=== PATIENT | female | born 1945 | race Caucasian/White ===

== ENCOUNTER 2019-04-21 14:55 | Outpatient (CLI) | payer MEDICARE, OTHER, SELFPAY ==
--- NOTE | 2019-04-21 | XR_ITS ---
WS: [id number] HIP WITH PELVIS LEFT TECHNIQUE: 3 views of the left hip with pelvis CLINICAL INFORMATION: LEFT HIP PAIN COMPARISON: None. FINDINGS: Mild degenerative arthritis left hip with joint space narrowing. Osteopenia. Pelvic phleboliths. No a cute fractures. XR/XR hip LT 2-3V wo/w pel* [id number] IMPRESSION: No acute fractures
== END 2019-04-21 14:56 | disposition home or self-care (01) ==
LOC: RADOUTREAD 04-22 11:37
PROVIDERS: Family Provider Internal Medicine; PCP Internal Medicine; Visit Provider Nurse Practitioner Family
DX: M16.12 Unilateral primary osteoarthritis, left hip (principal); M25.552 Pain in left hip

== ENCOUNTER 2019-06-15 08:37 | Outpatient (CLI) | payer MEDICARE, OTHER, SELFPAY ==
--- NOTE | 2019-06-15 08:53 | XR_ITS ---
WS: [id number] PROCEDURE: XR chest 2V* [id number] CLINICAL INFORMATION: COUGH COMPARISON: September 17, 2018 FINDINGS: Heart: Normal cardiac silhouette. Tortuous thoracic aorta. Aortic calcification. Lungs: Lungs are clear. No consolidation or pleural fluid. Chronic emphysematous changes. Chronic roverto vation left hemidiaphragm unchanged. Bones: Normal visualized bony structures. XR/XR chest 2V* [id number] IMPRESSION: 1. Chronic elevation left hemidiaphragm unchanged since 2018. 2. No significant interval changes.
== END 2019-06-15 08:38 | disposition home or self-care (01) ==
LOC: RADWPI 08:47
PROVIDERS: Family Provider Internal Medicine; PCP Internal Medicine; Visit Provider Specialist
DX: R05 Cough (principal)
CPT/HCPCS: 71046

== ENCOUNTER → 2019-07-16 08:14 | Outpatient (BNVA) | payer MEDICARE, OTHER, SELFPAY | PROVIDERS: Family Provider Internal Medicine; PCP Internal Medicine; Visit Provider Nurse Practitioner Family | DX: N30.80 Other cystitis without hematuria (principal) | CPT/HCPCS: 81001 ==

== ENCOUNTER → 2019-10-14 08:54 | Outpatient (BNVA) | payer MEDICARE, OTHER, SELFPAY | PROVIDERS: Family Provider Internal Medicine; PCP Internal Medicine; Visit Provider Dermatology | DX: L40.8 Other psoriasis (principal) | CPT/HCPCS: 99203 ==

== ENCOUNTER 2020-06-10 20:01 | Observation (INO) | payer MEDICARE, OTHER, SELFPAY ==
[2020-06-10 20:08] VITALS: BP 181/94; PULSE 80; RESP 16; TEMP 36.6; O2SAT 97; BMI 26.6
--- NOTE | 2020-06-10 20:29 | CTR_ITS ---
PROCEDURE INFORMATION: Exam: CT Head Without Contrast Exam date and time: 06/10/2020 8:31 PM Age: 74 years old Clinical indication: Pain; Headache not specified; Patient HX: Headache with dizziness and nausea; Additional info: Dizzy TECHNIQUE: Imaging protocol: Computed tomography of the head without contrast. Radiation optimization: All CT scans at this facility use at least one of these dose optimization techniques: automated exposure control; mA and/or kV adjustment per patient size (includes targeted exams where dose is matched to clinical indication); or iterative reconstruction. COMPARISON: No relevant prior studies available. RADIATION DOSE METRICS: Total DLP (mGy-cm): 871.25 FINDINGS: There is mild generalized atrophy. There are mild areas of decreased attenuation in the periventricular white matter which is nonspecific but likely relates to small vessel ischemic change. 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 There is no evidence for acute infarct. There is no evidence for mass. There is no hemorrhage. There are no extra-axial fluid collections. There is no midline shift. The skull is intact. The visualized paranasal sinuses are well aerated. There is atherosclerotic change of the cavernous carotid arteries. CT/CT head wo con* [id number] IMPRESSION: No evidence for acute infarct, mass or hemorrhage. Radiation Dose CTDIVOL = (mGy): DLP = 871.25 (mGy-cm)
--- NOTE | 2020-06-10 20:29 | XRR_ITS ---
PROCEDURE INFORMATION: Exam: XR Chest Exam date and time: 06/10/2020 8:32 PM Age: 74 years old Clinical indication: Other: Dizzy; Prior surgery; Surgery date: 6+ months TECHNIQUE: Imaging protocol: XR of the chest Views: 1 view. COMPARISON: CR XR chest 2V* [id number] 06/15/2019 9:01 AM FINDINGS: There is elevation of the left hemidiaphragm. There is some atelectasis in the left lung base. The right lung is clear. There is no pleural effusion or pneumothorax. The heart size is stable. The pulmonary vascularity is normal. XR/XR chest 1V portable [id number] IMPRESSION: Some minimal atelectasis in the left lung base.
--- NOTE | 2020-06-10 20:30 | ECG_ITS ---
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
[2020-06-10 20:40] LABS: Basophils # 0.1 10^3/uL (0.0-0.1); Eosinophils # 0.3 10^3/uL (0.0-0.8); Eosinophils % 3.7 %; Hemoglobin 13.4 g/dL (11.5-15.3); Lymphocytes # 2.1 10^3/uL (0.8-4.8); Lymphocytes % 24.9 %; Mean Corpuscular HGB Conc 32.7 g/dL (30.0-36.0); Mean Corpuscular Hemoglobin 28.4 pg (28.0-34.0); Mean Corpuscular Volume 86.9 fL (81-99); Mean Platelet Volume 9.2 fL (7.4-10.4); Monocytes # 1.1 10^3/uL (0.2-0.9); Monocytes % 13.8 %; Neutrophils # 4.66 10^3/uL (1.8-7.7); Neutrophils % 56.4 %; Nucleated Red Blood Cells % 0 %; Platelet Count 497 10^3/cmm (130-400); Red Blood Count 4.72 10^6/uL (4.1-5.3); Red Cell Distribution Width 13.1 % (12.1-15.1); White Blood Count 8.3 10^3/uL (4.0-10.0)
[2020-06-10 20:53] LABS: Partial Thromboplastin Time 32.1 SECONDS (23.9-36.7)
[2020-06-10 20:57] LABS: Alanine Aminotransferase 20 U/L (0-33); Alkaline Phosphatase 184 IU/L (35-105); Anion Gap 14.4 (5-19); Aspartate Amino Transferase 21 U/L (0-32); Blood Urea Nitrogen 14 mg/dL (8-23); C Reactive Protein 4.4 mg/L (0.0-4.9); Calcium 8.9 mg/dL (8.5-10.5); Carbon Dioxide 26 mmol/L (22-29); Chloride 101 mmol/L (98-107); Creatine Phosphokinase 87 U/L (26-192); Globulin 2.6 g/dL (1.3-4.6); Glucose 115 mg/dL (65-115); Osmolality Calculated 287 mOsm/kg (285-295); Potassium 3.4 mmol/L (3.5-5.1); Sodium 138 mmol/L (136-145); Total Bilirubin 0.2 mg/dL (0.15-1.2); Total Protein 6.6 g/dL (6.6-8.7)
[2020-06-10 21:00] LABS: Troponin(5th) Baseline 10 ng/L (0-10)
--- NOTE | 2020-06-10 21:02 | W.ED.DIZZY ---
HPI - Dizziness General: Chief Complaint: Dizziness Stated Complaint: DIZZY SPELLS, HTN Time Seen by Provider: 06/10/20 20:24 History of Present Illness: HPI Narrative: 74-year-old lady with no prior history of headaches presents with headache on and off for 4 days or so. It became worse today with onset of dizziness about an hour prior to arrival. She states she was nauseated because of the dizziness. She describes it as a vertiginous type dizziness with associated nausea she says that she was able to transfer and was not ataxic. She localizes the pain to the back of her head. She has also noticed that her blood pressure has been high, particularly now. MD elicited complaint: dizziness, lightheadedness, near syncope and vertigo Pertinent past history: other ( Heart murmur htn) Onset (ago): minute(s) (60) Timing: gradual onset Severity: severe Description: sense of movement, room spinning , lightheadedness and near-syncope History of similar symptoms: No Exacerbating factors: movement/ambulation, change in body position and position/lying down Relieving factors: remaining still Associated symptoms: Reports headache(s), nausea and vomiting; Denies change in hearing, chest pain, cough, diaphoresis, fevers/chills, syncope or weakness Associated neuro symptoms: Deny confusion, difficulty speaking, dysphagia, diplopia, extremity weakness, facial numbness, facial weakness, numbness in extremities or visual changes Review of Systems Const: Denies: fever(s) or diaphoresis ENMT: Denies: change in hearing Card: Denies: chest pain or syncope Resp: Denies: dyspnea or productive cough GI: Reports: nausea and vomiting; Denies: dysphagia Neuro: Reports: headache(s); Denies: numbness in extremities or confusion PFS ED PFSH: Medical History Aortic valve sclerosis History of cystocele REPAIRED WITH RECTOCELE HTN (hypertension) with goal to be determined Hyponatremia Murmur Recurrent UTI Tarsal tunnel syndrome Surgical History History of Achilles tendon repair History of repair of rectocele History of total knee arthroplasty BILATERAL Hx of foot surgery Hx of hysterectomy with oophorectomy Family History Mother CAD (coronary artery disease) Father CAD (coronary artery disease) Social History Smoking and tobacco status: former smoker Alcohol intake: never Adopted: No Caregiver/support person: No Lives independently: No Household members: spouse Marital status: Current occupational status: retired History of recent travel: No Current gender identity: Female Physical Exam Const: COMMON NORMALS: patient oriented x3 GENERAL APPEARANCE: ill appearing and frail appearing ORIENTATION/CONSCIOUSNESS: Yes oriented to person, Yes oriented to place and Yes oriented to time HENMT: COMMON NORMALS: normocephalic, external ears normal and Normal external nose present HEAD & SCALP: normocephalic FACE & SINUS: normal facial exam NOSE: Normal external nose present and No nasal discharge present EXTERNAL EAR: Yes external ears normal Eye: COMMON NORMALS: Equal, round and reactive pupils present, EOMs intact bilaterally and conjunctivae normal EYELID: eyelids normal CONJUNCTIVA: Yes conjunctivae normal PUPIL: Yes Equal, round and reactive pupils present Neck/C-Spine: COMMON NORMALS: full ROM and no meningeal signs CERVICAL SPINE: Yes normal cervical lordosis and No Cervical spine tenderness Chest: COMMONS NORMALS: normal inspection of the chest CHEST: No tenderness Resp: COMMON NORMALS: clear to auscultation bilaterally EFFORT & INSPECTION: No tachypneic, No respiratory distress, No retractions, No uses accessory muscles and No tracheal deviation AUSCULTATION: clear to auscultation bilaterally, no rhonchi, no wheezes and lung sounds not diminished Cardio: COMMON NORMALS: regular rate and regular rhythm RATE: regular rate RHYTHM: regular rhythm HEART SOUNDS: Murmur heart sound present PERIPHERAL PULSES: radial pulses present GI: INSPECTION: No abdominal distension AUSCULTATION: No Hyperactive bowel sounds present and No Hypoactive bowel sounds present PALPATION: No Guarding due to palpation present (GI) and No Rigid due to palpation PERCUSSION: no dullness to percussion and no tympanic to percussion Neuro: COMMON NORMALS: patient oriented x3, CN's II-XII intact bilaterally and moves all extremities SENSORIUM/ORIENTATION: Yes oriented to person, Yes oriented to place and Yes oriented to time MENINGEAL SIGNS: Yes no meningeal signs COORDINATION/BALANCE: [id number] test normal and [id number]-xz-[id number] test normal SPEECH: speech normal GAIT: Yes Unable to assess gait SENSORY EXAM: Yes extremities (Normal) MOTOR EXAM: 5/5 motor strength present throughout and Pronator motor function not present COORDINATION: qiajqt-mi-upvo test normal and [id number]-lv-[id number] test normal Psych: COMMON NORMALS: mental status grossly normal Skin: COMMON NORMALS: no rashes or lesions noted GENERAL SKIN EXAM: no rashes or lesions noted Course Vital Signs: Vital signs: Vital Signs Temperature 97.7 F 06/11/20 04:00 Pulse Rate 66 06/11/20 04:00 Respiratory Rate 20 H 06/11/20 04:00 Blood Pressure 126/65 06/11/20 04:00 Pulse Oximetry 93 06/11/20 04:00 MDM - Dizziness MDM Narrative: Medical decision making narrative: NIH stroke scale is 0. The patient is not dizzy when not moving or changing position she got dizzy lying flat for CT, and with getting up to use the bedside commode nausea with vomiting both times. Laboratory grossly normal save a potassium of 3.4. Head CT is negative. CTA of the head and neck are performed without evidence of occlusion or dissection. CRP is normal. Blood pressure was quite high. It is improved now 140/90. Her head pressure has improved but not resolved, her nausea has resolved. Her dizziness is nonexistent when lying still. Posterior circulation stroke is in the differential, but these people generally are dizzy despite remaining still, and do not have intense headaches. Hypertensive urgency is in the differential as well migraine with dizziness and labyrinthitis/positional vertigo. Giving IV Depacon to see if head pressure improves. Head pressure improved with Depacon. Patient is still vertiginous with movement. Her pressure is improved. She will be observed for generalized weakness and vertigo. MRI of possible later in the morning. Lab Data: Labs: Lab Results 06/10/20 06/10/20 06/10/20 Range/Units 00:01 20:34 20:34 WBC 8.3 (4.0-10.0) 10^3/ uL RBC 4.72 (4.1-5.3) 10^6/u L Hgb 13.4 (11.5-15.3) g/dL Hct 41.0 (37.0-47.0) % MCV 86.9 (81-99) fL MCH 28.4 (28.0-34.0) pg MCHC 32.7 (30.0-36.0) g/dL RDW 13.1 (12.1-15.1) % Plt Count 497 H (130-400) 10^3/c mm MPV 9.2 (7.4-10.4) fL Neut % (Auto) 56.4 % Lymph % (Auto) 24.9 % [place] % (Auto) 13.8 % Eos % (Auto) 3.7 % Baso % (Auto) 1.0 % Neut # (Auto) 4.66 (1.8-7.7) 10^3/u L Lymph # (Auto) 2.1 (0.8-4.8) 10^3/u L [place] # (Auto) 1.1 H (0.2-0.9) 10^3/u L Eos # (Auto) 0.3 (0.0-0.8) 10^3/u L Baso # (Auto) 0.1 (0.0-0.1) 10^3/u L Nucleated RBC % (a uto) 0 % Nucleated RBCs # 0.0 /100WBC PT 13.50 (12.1-14.9) SECO NDS INR 1.00 (0.8-1.2) APTT 32.1 (23.9-36.7) SECO NDS Sodium (136-145) mmol/L Potassium (3.5-5.1) mmol/L Chloride (98-107) mmol/L Carbon Dioxide (22-29) mmol/L Anion Gap (5-19) BUN (8-23) mg/dL Creatinine (0.5-0.9) mg/dL GFR Calculation Glucose (65-115) mg/dL Calculated Osmolal ity (285-295) mOsm/k g Calcium (8.5-10.5) mg/dL Total Bilirubin (0.15-1.2) mg/dL AST (0-32) U/L ALT (0-33) U/L Alkaline Phosphata se (35-105) IU/L Creatine Kinase (26-192) U/L Troponin T Baselin e (0-10) ng/L Troponin T 120 Min [place] 8.32 (0-10) ng/L Delta Troponin T Not Reportable C-Reactive Protein (0.0-4.9) mg/L Total Protein (6.6-8.7) g/dL Albumin (3.5-5.2) g/dL Globulin (1.3-4.6) g/dL Urine Color (Yellow) Urine Appearance (CLEAR) Urine pH (5-7) Ur Specific Gravit y (1.005-1.030) Urine Protein (Negative) Urine Glucose (UA) (Normal) Urine Ketones (Negative) Urine Blood (Negative) Urine Nitrate (Negative) Urine Bilirubin (Negative) Prot Sulfosalicyli c Acd (Negative) Urine Urobilinogen (Negative) mg/dL Ur Leukocyte Yuli ase (Negative) 06/10/20 06/10/20 06/10/20 Range/Units 20:34 20:34 22:00 WBC (4.0-10.0) 10^3/ uL RBC (4.1-5.3) 10^6/u L Hgb (11.5-15.3) g/dL Hct (37.0-47.0) % MCV (81-99) fL MCH (28.0-34.0) pg MCHC (30.0-36.0) g/dL RDW (12.1-15.1) % Plt Count (130-400) 10^3/c mm MPV (7.4-10.4) fL Neut % (Auto) % Lymph % (Auto) % [place] % (Auto) % Eos % (Auto) % Baso % (Auto) % Neut # (Auto) (1.8-7.7) 10^3/u L Lymph # (Auto) (0.8-4.8) 10^3/u L [place] # (Auto) (0.2-0.9) 10^3/u L Eos # (Auto) (0.0-0.8) 10^3/u L Baso # (Auto) (0.0-0.1) 10^3/u L Nucleated RBC % (a uto) % Nucleated RBCs # /100WBC PT (12.1-14.9) SECO NDS INR (0.8-1.2) APTT (23.9-36.7) SECO NDS Sodium 138 (136-145) mmol/L Potassium 3.4 L (3.5-5.1) mmol/L Chloride 101 (98-107) mmol/L Carbon Dioxide 26 (22-29) mmol/L Anion Gap 14.4 (5-19) BUN 14 (8-23) mg/dL Creatinine 0.8 (0.5-0.9) mg/dL GFR Calculation Not Reportable Glucose 115 (65-115) mg/dL Calculated Osmolal ity 287 (285-295) mOsm/k g Calcium 8.9 (8.5-10.5) mg/dL Total Bilirubin 0.2 (0.15-1.2) mg/dL AST 21 (0-32) U/L ALT 20 (0-33) U/L Alkaline Phosphata se 184 H (35-105) IU/L Creatine Kinase 87 (26-192) U/L Troponin T Baselin e 10 (0-10) ng/L Troponin T 120 Min [place] (0-10) ng/L Delta Troponin T C-Reactive Protein 4.4 (0.0-4.9) mg/L Total Protein 6.6 (6.6-8.7) g/dL Albumin 4.0 (3.5-5.2) g/dL Globulin 2.6 (1.3-4.6) g/dL Urine Color Yellow (Yellow) Urine Appearance Clear (CLEAR) Urine pH 8 H (5-7) Ur Specific Gravit y 1.010 (1.005-1.030) Urine Protein Neg (Negative) Urine Glucose (UA) Norm (Normal) Urine Ketones Negative (Negative) Urine Blood Neg (Negative) Urine Nitrate Negative (Negative) Urine Bilirubin Neg (Negative) Prot Sulfosalicyli c Acd Negative (Negative) Urine Urobilinogen Norm (Negative) mg/dL Ur Leukocyte Yuli ase Negative (Negative) Discharge Plan Discharge Patient Disposition: Placed in Observation Admit Provider: Bryon Mujica Clinical Impression: Hypertensive urgency Headache Qualifiers: Intractability: not intractable Coding Level of Care Code ED Joiner Helper for Chg Fwd Exam Comprehensive
--- NOTE | 2020-06-10 21:05 | CTR_ITS ---
PROCEDURE INFORMATION: Exam: CT Angiography Head With Contrast Exam date and time: 06/10/2020 9:07 PM Age: 74 years old Clinical indication: Pain; Dizziness and giddiness; Patient HX: Occipital headache with dizziness and nausea. TECHNIQUE: Imaging protocol: Computed tomography angiography of the head with intravenous contrast. 3D rendering (Not supervised by radiologist): MIP and/or 3D reconstructed images were created by the technologist. Total images: 782 Radiation optimization: All CT scans at this facility use at least one of these dose optimization techniques: automated exposure control; mA and/or kV adjustment per patient size (includes targeted exams where dose is matched to clinical indication); or iterative reconstruction. Contrast material: 350; Contrast volume: 75 ml; Contrast route: INTRAVENOUS (IV); COMPARISON: CT head wo con* [id number] 06/10/2020 8:58 PM RADIATION DOSE METRICS: Total DLP (mGy-cm): 1941.73 FINDINGS: ANTERIOR CIRCULATION: Right internal carotid artery: Minimal cerebral arteriosclerosis of the internal carotid artery terminus without hemodynamically significant stenosis. Intracranial segment is patent with no significant stenosis. No aneurysm. Right middle cerebral artery: Unremarkable. No occlusion or significant stenosis. No aneurysm. Right anterior cerebral artery: Unremarkable. No occlusion or significant stenosis. No aneurysm. Left internal carotid artery: Minimal cerebral arteriosclerosis of the internal carotid artery terminus without hemodynamically significant stenosis. Intracranial segment is patent with no significant stenosis. No aneurysm. Left middle cerebral artery: Unremarkable. No occlusion or significant stenosis. No aneurysm. Left anterior cerebral artery: Unremarkable. No occlusion or significant stenosis. No aneurysm. POSTERIOR CIRCULATION: Right vertebral artery: Unremarkable. No occlusion or significant stenosis. No aneurysm. Left vertebral artery: Unremarkable. No occlusion or significant stenosis. No aneurysm. Basilar artery: Unremarkable. No occlusion or significant stenosis. No aneurysm. Right posterior cerebral artery: Unremarkable. No occlusion or significant stenosis. No aneurysm. Left posterior cerebral artery: Unremarkable. No occlusion or significant stenosis. No aneurysm. IMPRESSION: 1. No large vessel stenosis or occlusion. 2. Minimal cerebral arteriosclerosis of the bilateral internal carotid artery terminus without hemodynamically significant stenosis. PROCEDURE INFORMATION: Exam: CT Angiography Neck With Contrast Exam date and time: 06/10/2020 9:07 PM Age: 74 years old Clinical indication: Pain; Dizziness and giddiness; Patient HX: Occipital headache with dizziness and nausea. TECHNIQUE: Imaging protocol: Computed tomography angiography of the neck with intravenous contrast. 3D rendering (Not supervised by radiologist): MIP and/or 3D reconstructed images were created by the technologist. Radiation optimization: All CT scans at this facility use at least one of these dose optimization techniques: automated exposure control; mA and/or kV adjustment per patient size (includes targeted exams where dose is matched to clinical indication); or iterative reconstruction. Contrast material: 350; Contrast volume: 75 ml; Contrast route: INTRAVENOUS (IV); COMPARISON: CT head wo con* [id number] 06/10/2020 8:58 PM RADIATION DOSE METRICS: Total DLP (mGy-cm): 1941.73 FINDINGS: Right common carotid artery: No stenosis. No dissection or occlusion. Right internal carotid artery: No stenosis of the extracranial segment. No dissection or occlusion. Right external carotid artery: No occlusion or stenosis of the origin. Right vertebral artery: No stenosis. No dissection or occlusion. Left common carotid artery: No stenosis. No dissection or occlusion. Left internal carotid artery: No stenosis of the extracranial segment. No dissection or occlusion. Left external carotid artery: No occlusion or stenosis of the origin. Left vertebral artery: No stenosis. No dissection or occlusion. Bones/joints: No acute fracture. 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 Facet arthrosis. Soft tissues: Unremarkable for age. No significant soft tissue swelling. CT/CT angio headneck* [id number] IMPRESSION: No stenosis or occlusion. REFERENCES: NASCET CRITERIA. The degree of internal carotid artery stenosis is based on NASCET criteria. Normal is no stenosis. Mild is less than 50% stenosis. Moderate is 50-69% stenosis. Severe is 70% to 99% stenosis. Total occlusion is no detectable patent lumen. Radiation Dose CTDIVOL = (mGy): DLP = 1941.73~1941.73 (mGy-cm)
[2020-06-10] MEDS: ondansetron 2 mg/ML SDV 2 mL 4 MG IVP ×2 (21:07→22:13)
[2020-06-10] MEDS: fentaNYL 50 mcg/mL INJ 2mL IVP (21:07)
[2020-06-10] MEDS: labetalol 5 mg/mL SDV 20mL 10 MG IVP (21:13)
[2020-06-10] MEDS: iohexol 350 mg/mL 100 mL Btl IV (21:27)
[2020-06-10 21:36] VITALS: BP 186/91; PULSE 71; RESP 19; O2SAT 95
[2020-06-10] MEDS: LORazepam 2 mg/mL INJ 1 mL 0.5 MG IVP ×2 (22:13→22:14)
[2020-06-10 22:18] VITALS: BP 159/88; PULSE 65; RESP 18; O2SAT 91
--- NOTE | 2020-06-10 22:30 | ECG_ITS ---
[facility] Test Date: 2020-06-10 Pat Name: Sierra Pearce Department: Room: Gender: Female Clinical Associate: : 1945 Requested By: Patrick Burton Order Number: [id number] Reading MD: YONNY BUCKLEY Measurements Intervals Lottie Rate: 59 P: 34 IN: 204 QRS: 12 QRSD: 88 T: 51 QT: 446 QTc: 444 Interpretive Statements SINUS BRADYCARDIA Compared to ECG 06/10/2020 20:52:06 Sinus rhythm no longer present Electronically Signed On 06-11-2020 18:47:47 [employer] by YONNY BUCKLEY [id number]
[2020-06-10 22:46] LABS: Add Urine Microscopic? NO
[2020-06-10 22:47] LABS: Urine Appearance Clear (CLEAR); Urine Color Yellow (Yellow)
[2020-06-10 22:48] LABS: Bilirubin Urine Neg (Negative); Blood Urine Neg (Negative); Glucose Urine UA Norm (Normal); Ketones Urine Negative (Negative); Leukocyte Esterase Urine Negative (Negative); Nitrate Urine Negative (Negative); Protein Urine Neg (Negative); Sulfosalicylic Acid Urine Negative (Negative); Urobilinogen Urine Norm (Negative); pH Urine 8 (5-7)
[2020-06-10] MEDS: valproic acid inj 500 MG in sodium chloride 0.9% 50 ML 55 MG IV (23:07)
[2020-06-10 23:13] VITALS: BP 135/86; PULSE 61; RESP 16; O2SAT 94
[2020-06-11] VITALS (9 sets, daily range): BP systolic 118–153; BP diastolic 65–87; PULSE 64–84; RESP 16–20; TEMP 36.2–36.8; O2SAT 91–96
--- NOTE | 2020-06-11 00:19 | P.HP_ITS ---
Providers/Chief Complaint Primary Care Provider: Jono Burnham DO Chief Complaint: DIZZY SPELLS, HTN History of Present Illness Sierra Pearce is a 74 year old female with a history of hypertension aortic sclerosis with murmur presented to the emergency department with a complaint of progressive headache of 3 days duration. Patient stated the headache became much worse yesterday evening and therefore presented to the ED. headache is associated with vertigo and nausea. No tinnitus. patient denied any photophobia. Spouse endorsed history of migraine headaches patient was a teenager but over the past 50 years patient have had no management episode. Head CT, CTA head and neck are all unremarkable. EKG is unremarkable. Blood work unremarkable. Per report her systolic blood pressure was 190 on arrival. Patient was given a cocktail of pain medications including Depakote. Patient states her headache and vertigo have improved but she looks drowsy during my examination in the ED. Patient is placed on the observation for further evaluation. Review of Systems Narrative: Except as documented, all other systems reviewed and negative. Medications/Allergies Home Medications Medication Instructions Recorded Confirmed Last Taken Type B-complex with vitamin C 1 cap PO DAILY 07/15/19 06/10/20 Unknown History amlodipine 10 mg tablet 10 mg PO DAILY@0800 07/15/19 06/10/20 06/10/20 History montelukast 10 mg tablet 10 mg PO DAILY@0800 07/15/19 06/10/20 06/10/20 History ketoconazole 2 % shampoo 1 applic TOPICAL DAILY ml 10/14/19 06/10/20 Unknown History mometasone 0.1 % topical solution 1 applic TOPICAL DAILY 10/14/19 06/10/20 Unknown History ciclopirox 0.77 % topical gel 1 applic TOPICAL DAILY #45 gm 10/16/19 06/10/20 Unknown Rx fluocinolone 0.01 % topical body 1 applic TOPICAL DAILY 03/14/20 06/10/20 Unknown History oil Allergies Allergy/AdvReac Type Severity Reaction Status Date / Time hydrocodone Allergy Unknown Unknown Verified 03/22/20 13:07 [From Panlor (hydrocodone-acetamin)] levofloxacin [From Levaquin] AdvReac ADR-Muscle Verified 03/22/20 13:07 Pain PFSH Acute PFSH: Medical History Aortic valve sclerosis History of cystocele REPAIRED WITH RECTOCELE HTN (hypertension) with goal to be determined Hyponatremia Murmur Recurrent UTI Tarsal tunnel syndrome Surgical History History of Achilles tendon repair History of repair of rectocele History of total knee arthroplasty BILATERAL Hx of foot surgery Hx of hysterectomy with oophorectomy Family History Mother CAD (coronary artery disease) Father CAD (coronary artery disease) Social History Smoking and tobacco status: former smoker Alcohol intake: never Adopted: No Caregiver/support person: No Lives independently: No Household members: spouse Marital status: Current occupational status: retired History of recent travel: No Current gender identity: Female Vitals/I&O/Wt Last Vital Signs Temp 97.8 F 06/10/20 20:08 Pulse 61 06/10/20 23:13 Resp 16 06/10/20 23:13 BP 135/86 06/10/20 23:13 Pulse Ox 94 06/10/20 23:13 Weight last 48 hrs Weight 72.575 kg Physical Exam Const: COMMON NORMALS: no acute distress, patient oriented x3 and well nourished HENMT: COMMON NORMALS: atraumatic, moist oral mucous membranes and oropharynx normal Eye: COMMON NORMALS: Equal, round and reactive pupils present, EOMs intact bilaterally and conjunctivae normal Neck/C-Spine: COMMON NORMALS: full ROM, no lymphadenopathy, no JVD and No carotid bruits Lymph: LYMPHATIC: no lymphadenopathy noted Chest: COMMONS NORMALS: normal inspection of the chest CHEST: Yes Symmetrical chest wall rise Resp: COMMON NORMALS: normal respiratory effort, No retractions, No use of accessory muscles and clear to auscultation bilaterally Cardio: COMMON NORMALS: no JVD, regular rate, regular rhythm, S1 normal heart sound present and S2 normal heart sound present HEART SOUNDS: Murmur heart sound present systolic GI: COMMON NORMALS: Normal to inspection, nondistended, normoactive bowel sounds present, Soft to palpation, non-tender, No hepatosplenomegaly present and no bruits : COMMON NORMALS: Yes no CVA tenderness Back/Pelvis: COMMON NORMALS: no thoracic nor lumbar tenderness and thoraco-lumbar ROM normal Extremity: COMMON NORMALS: normal to inspection, capillary refill normal, no clubbing, cyanosis or edema, no calf tenderness and no pedal edema Neuro: COMMON NORMALS: patient oriented x3, CN's II-XII intact bilaterally, no focal motor deficits and no sensory deficits noted Psych: COMMON NORMALS: mental status grossly normal, Normal thought process present, cooperative and speech normal Skin: COMMON NORMALS: no rashes or lesions noted and no jaundice Data : 06/10/20 20:34 06/10/20 20:34 A&P Assessment and plan (1) Headache: Status: Acute (2) Hypertensive urgency: Status: Acute (3) Aortic valve sclerosis: Status: Acute Additional A&P Information Placed under observation. Supportive measures with IV morphine as needed for pain, antiemetics as needed. Hydrate with normal saline Obtain MRI of the brain to rule out acute CVA PT evaluation Continue home antihypertensives-amlodipine. Hydralazine as needed for BP spikes. Attestations Medical Necessity Statement*: Patient presenting with headache associated with vertigo. She need to be hospitalized for further evaluation to rule out acute CVA. She is expected to spend less than 2 midnights. Coding Level of Care Code Acute Hardwood Floor Refinisher for g Fwd Exam Comprehensive Diagnoses Headache R51.9 Hypertensive urgency I16.0 Aortic valve sclerosis I35.8
[2020-06-11 01:05] LABS: Troponin 5 2HR 8.32 ng/L (0-10)
[2020-06-11] MEDS: sodium chloride 0.9% 1,000 ML 75 ML IV (01:17)
[2020-06-11 07:06] LABS: Troponin 5 6HR 9.04 ng/L (0-10)
[2020-06-11] MEDS: montelukast sodium 10 mg Tablet PO (08:46)
[2020-06-11] MEDS: amlodipine 10 mg Tablet PO (08:46)
[2020-06-11] MEDS: ondansetron 2 mg/ML SDV 2 mL 4 MG IVP (09:03)
--- NOTE | 2020-06-11 09:04 | PC.NURSE ---
Patient ambulating with PT
--- NOTE | 2020-06-11 09:56 | PC.NURSE ---
Rounded on patient to give her the 325mg of tylenol that she had requested, but patient is currently sleeping in room. I chose to not awaken the patient at this time. Will continue to monitor.
[2020-06-11 10:15] LABS: Troponin 5 6HR Delta -0.96 ng/L (0-12)
[2020-06-11] MEDS: acetaminophen 325 mg Tablet PO (11:24)
--- NOTE | 2020-06-11 12:03 | MRR_ITS ---
PROCEDURE INFORMATION: Exam: MR Head Without Contrast Exam date and time: 06/11/2020 1:16 PM Age: 74 years old Clinical indication: Pain; Dizziness; Headache not specified; Additional info: Severe headache, possible stroke, nausea and vertigo TECHNIQUE: Imaging protocol: MR of the head without contrast. COMPARISON: CT head wo con* [id number] 06/10/2020 8:58 PM FINDINGS: Brain: There are multiple foci of high T2 and FLAIR signal in the periventricular and subcortical white matter of the bilateral cerebral hemispheres, which at this age likely represent microvascular ischemic changes. There is diffuse cerebral atrophy present, consistent with this patient's age. Diffusion-weighted images show no evidence for acute ischemic infarction. Cerebral ventricles: Normal. No ventriculomegaly. Bones/joints: Unremarkable. Paranasal sinuses: Normal as visualized. No acute sinusitis. Mastoid air cells: Normal as visualized. No mastoid effusion. Orbital cavity: Unremarkable. Soft tissues: Unremarkable. MR/MR head wo con* [id number] IMPRESSION: There are senescent changes in the brain as described above. No evidence for acute ischemic infarction.
[2020-06-11] MEDS: ALPRAZolam 0.25 mg Tablet PO (13:07)
--- NOTE | 2020-06-11 13:07 | PC.NURSE ---
Patient was transported to [facility] by EMS for MRI
--- NOTE | 2020-06-11 14:21 | PC.NURSE ---
Patient is resting in bed; at bedside
--- NOTE | 2020-06-11 14:51 | P.PN_ITS ---
Subjective Subjective: Interval history: Continues to have headache. It has migrated somewhat, getting better at the base of her skull/top of the neck, and migrating to bilateral parietal regions. It is constant. She has no photophobia. No neck discomfort or stiffness. Has had no fever or chills. No nausea vomiting or diarrhea. No rash. denies any confusion, any speech deficits. She has a remote history of migraines, but this did not feel like her migraine in the past, and she has not had them for a long time. She does not take NSAIDs or other similar medications chronically. Blood pressures have been on the higher side at home recently per with episodic hypertension. Pain overall is somewhat better, from 8/10 currently down to about 5/10, but persists. She is wanting to try some broth and may be some other clears. Vitals/I&O/Wt Last Vital Signs Temp 97.8 F 06/11/20 11:49 Pulse 67 06/11/20 11:49 Resp 18 06/11/20 11:49 BP 153/81 06/11/20 11:49 Pulse Ox 92 06/11/20 11:49 06/10/20 06/11/20 06/11/20 22:59 06:59 14:59 Intake Total 55 / 55 30 / 30 Balance 55 / 55 30 / 30 Weight last 48 hrs Weight 72.575 kg Physical Exam Const: COMMON NORMALS: no acute distress, patient oriented x3 and alert GENERAL APPEARANCE: cooperative ORIENTATION/CONSCIOUSNESS: Yes awake OTHER: Hent over forehead, bothered by headache. HENMT: COMMON NORMALS: oropharynx normal Neck/C-Spine: COMMON NORMALS: no JVD Resp: COMMON NORMALS: normal respiratory effort and clear to auscultation bilaterally AUSCULTATION: clear to auscultation bilaterally Cardio: COMMON NORMALS: no JVD, regular rhythm, S1 normal heart sound present, S2 normal heart sound present and No murmurs present (Cardio) RHYTHM: regular rhythm HEART SOUNDS: S1 normal heart sound present and S2 normal heart sound present GI: COMMON NORMALS: Normal to inspection, nondistended, normoactive bowel sounds present, Soft to palpation and non-tender PALPATION: Yes Soft to palpation Extremity: COMMON NORMALS: no joint enlargement and no pedal edema Neuro: COMMON NORMALS: patient oriented x3, moves all extremities and no focal motor deficits SENSORIUM/ORIENTATION: Yes alert MENINGEAL SIGNS: No nuccal rigidity COORDINATION/BALANCE: [id number] test normal SPEECH: speech normal SENSORY EXAM: Yes Normal double simultaneous stimulation for s ensation; No sensory level loss detected MOTOR EXAM: 5/5 motor strength present throughout, Pronator motor function not present and Normal motor muscle tone present throughout COORDINATION: [id number] test normal OTHER: Tracking well. No nystagmus. Denies vertigo. Visual leahy full to confrontation. Skin: COMMON NORMALS: no rashes or lesions noted GENERAL SKIN EXAM: no rashes or lesions noted Data : 06/10/20 20:34 06/10/20 20:34 A&P Assessment and plan (1) Headache: Severe persistent headache which worsened over the last 3 days, severe yesterday, 10. Currently down to about 5/10, migrated from base of the skull to bilateral parietal regions. Does not appear to have focal neurologic a bnormality. Is afebrile. No photophobia or neck stiffness. CT head unremarkable. No signs of hydrocephalus. No signs of bleeding. CT angiogram head and neck appears to be unremarkable. This does not feel like her migraine which she had years ago, and has not had recurrence. The headache has been rather distressing to her. Currently overall perhaps slightly better. We discussed additional diagnostic possibilities. MRI had been ordered and performed for her. We discussed also consideration of assessment by LP to rule out infectious causes of possible meningitis as although does not appear to have other meningeal signs apart from headache, infection cannot be 100% ruled out at this time. Overall bacterial infection appears unlikely or much less likely with lack of fever, other septic features. She is not on any antibiotics. Viral meningitis possible. We discussed this in detail with her and her . We discussed consideration of obtaining LP currently, or waiting somewhat given she is improving, and overall does not have signs of sepsis. They are okay with giving her some more time to see if she will improve, and in the meantime follow-up on results of the MRI. Continue observation in the hospital. We also discussed possibility of hypertensive urgency, given her blood pressures recently have not been well controlled. Discussed with her and . MRI brain has just come back. Does not appear to show signs of PRES, although hypertension is still possible culprit. No temporal lobe enhancement to suggest HSV encephalitis on MRI. 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 Will assess CRP, ESR. CT angiogram does not appear to suggest vasculitis. If recurrent hypotension episodes, headaches, episodic in nature, consider assessment for pheochromocytoma. No vision changes, jaw claudication, etc. to suggest temporal arteritis. She has seasonal allergies, chronic cough with postnasal drip, although CT does not appear to suggest sinusitis. Status: Acute Qualifiers: Intractability: not intractable (2) Hypertensive urgency: Continue amlodipine., Hydralazine as needed. We will add lisinopril. DC IV fluid. Status: Acute (3) Aortic valve sclerosis: Systolic murmur. For this says she is followed by parole or probation officer. Status: Acute (4) Hypokalemia: Mild hypokalemia, 3.4. Replaced. Starting lisinopril as above. Status: Acute Attestations Medical Necessity Statement*: Continue observation due to unexplained severe, worsening headache over the last 3 days possible symptomatic hypertension, hypertensive urgency, optimization of blood pressure control, additional monitoring and work-up as needed to exclude more dangerous causes of the severe headache. Coding Level of Care Code Acute Product Support Sales Representative for Chg Fwd Diagnoses Headache R51.9 Intractability: not intractable Hypertensive urgency I16.0 Aortic valve sclerosis I35.8 Hypokalemia E87.6
[2020-06-11] MEDS: potassium chloride oral liq 20 mEq/15 mL UDC PO (15:17)
[2020-06-11] MEDS: lisinopril 5 mg Tablet PO (16:26)
--- NOTE | 2020-06-11 18:21 | PC.NURSE ---
SHIFT SUMMARY PATIENT HAS BEEN VERY CALM AND PLEASANT TODAY. PATIENT DOES NOT LIKE TAKING MORE MEDICATIONS THAN ABSOLUTELY NECESSARY (HAS ONLY TAKEN 325MG X1 OF TYLENOL TODAY FOR PAIN). PATIENT HAS STARTING FEELING BETTER THIS EVENING. PATIENT IS HOPEFUL SHE CAN GO HOME TOMORROW.
[2020-06-11 20:10] LABS: Erythrocyte Sedimentation Rate 6 mm/hr (0-15)
[2020-06-12 04:00] VITALS: BP 106/62; PULSE 66; RESP 16; TEMP 36.6; O2SAT 92
[2020-06-12] MEDS: enoxaparin 40 mg/0.4 mL Syringe SUBCUT (04:04)
[2020-06-12 06:25] LABS: Basophils # 0.1 10^3/uL (0.0-0.1); Basophils % 0.6 %; Eosinophils # 0.2 10^3/uL (0.0-0.8); Eosinophils % 2.2 %; Hemoglobin 12.7 g/dL (11.5-15.3); Lymphocytes # 1.9 10^3/uL (0.8-4.8); Lymphocytes % 24.9 %; Mean Corpuscular HGB Conc 31.8 g/dL (30.0-36.0); Mean Corpuscular Hemoglobin 28.3 pg (28.0-34.0); Mean Corpuscular Volume 89.1 fL (81-99); Mean Platelet Volume 9.6 fL (7.4-10.4); Monocytes # 0.8 10^3/uL (0.2-0.9); Monocytes % 10.6 %; Neutrophils # 4.73 10^3/uL (1.8-7.7); Neutrophils % 61.3 %; Nucleated Red Blood Cells % 0 %; Platelet Count 463 10^3/cmm (130-400); Red Blood Count 4.49 10^6/uL (4.1-5.3); Red Cell Distribution Width 13.1 % (12.1-15.1); White Blood Count 7.7 10^3/uL (4.0-10.0)
[2020-06-12 06:49] LABS: Alanine Aminotransferase 14 U/L (0-33); Albumin Level 3.3 g/dL (3.5-5.2); Alkaline Phosphatase 128 IU/L (35-105); Anion Gap 10.5 (5-19); Aspartate Amino Transferase 15 U/L (0-32); Blood Urea Nitrogen 8 mg/dL (8-23); Calcium 8.4 mg/dL (8.5-10.5); Carbon Dioxide 27 mmol/L (22-29); Chloride 107 mmol/L (98-107); Globulin 2.4 g/dL (1.3-4.6); Glucose 84 mg/dL (65-115); Magnesium 2.1 mg/dL (1.7-2.3); Osmolality Calculated 290 mOsm/kg (285-295); Phosphorus 3.5 mg/dL (2.5-4.5); Potassium 3.5 mmol/L (3.5-5.1); Sodium 141 mmol/L (136-145); Total Bilirubin 0.3 mg/dL (0.15-1.2); Total Protein 5.7 g/dL (6.6-8.7)
[2020-06-12 08:00] VITALS: BP 137/73; PULSE 66; RESP 18; TEMP 36.6; O2SAT 95
[2020-06-12 08:11] VITALS: BP 106/62; PULSE 66; RESP 16; TEMP 36.6
[2020-06-12 08:15] VITALS: PULSE 63; O2SAT 94
[2020-06-12] MEDS: montelukast sodium 10 mg Tablet PO (08:18)
[2020-06-12] MEDS: amlodipine 10 mg Tablet PO (08:18)
[2020-06-12 10:50] LABS: Gamma Glutamyl Transferase 15 U/L (5-36)
--- NOTE | 2020-06-12 11:24 | P.DS_ITS ---
Discharge Providers Date of Admission: 06/11/20 00:05 Date of Discharge: June 12, 2020 Attending Provider at Admission: Bryon Mujica Attending Provider at Discharge: Boo Gage Primary Care Provider: Jono Burnham DO Diagnoses at Discharge Discharge Diagnosis (1) Headache: Status: Acute Qualifiers: Intractability: not intractable (2) Hypertensive urgency: Status: Acute Permanent problem details: Severe symptomatic hypertension (3) Aortic valve sclerosis: Status: Acute (4) Hypokalemia: Status: Acute Reason for Visit Reason for Visit: DIZZY SPELLS, HTN Hospital Course Hospital Course Pleasant 74-year-old lady with history of HTN, aortic valve sclerosis, following with cardiology, presented with progressive headache over about 3 days, getting worse, reported lightheadedness/dizziness, but denied vertigo. She had no photophobia. She had no fever, chills. Headache was initially at the base of her head in the back. Subsequently migrated to bilateral parietal lobes. She had a distant history of migraine headaches, but they were not usually this bad. He has not had a headache in a long time. Prescription with her spouse she was noted to have blood pressures intermittently at that were high, and overall hypertension control has been worse recently. She takes amlodipine 10 mg daily. On presentation noted in hypertensive urgency, BP at least as high as 186/91, required hydralazine IV. Subsequently blood pressures gradually improved, but better, but still variable and occasionally up into the 150s systolic. Lisinopril was added. Due to severe headache was initially assessed by CT head which was unremarkable. Chest x-ray with minimal atelectasis in the left lung base, no sign of pulmonary edema or pneumonia. CT head and neck showed no large vessel stenosis. Minimal cerebral arteriosclerosis of bilateral internal carotid artery terminus without hemodynamically significant stenosis. With persistence of headache, was assessed additionally by MRI to exclude CVA and other endorgan injury, with finding of senescent changes, no evidence of acute ischemic infarction. Consideration of infectious causes was discussed with her and her . Lumbar puncture was considered, however, because she was improving they decided to additionally monitor, and appears this morning headache has entirely resolved. She has had no signs of sepsis, remained a febrile, no leukocytosis. Today she is feeling much better and request to return home. She knows to seek medical attention immediately in case there are any concerning symptoms, including no return of severe headache, any fever, confusion, or other concerns. Please follow-up and help her optimize blood pressure management. She is also started on lisinopril in addition to amlodipine. Mild hypokalemia in hospital is replaced. Please follow blood pressures, potassium level. Renal function. She is asked to maintain blood pressure log 3 times daily. She is asked to resume follow-up with her licensing representative with regards to hypertension, systolic murmur. Physical Exam Const: COMMON NORMALS: no acute distress, patient oriented x3 and alert GENERAL APPEARANCE: cooperative and comfortable ORIENTATION/CONSCIOUSNESS: Yes awake OTHER: This morning she is in great spirits. Headache has completely resolved. She is feeling back to her usual self asks to go home. HENMT: COMMON NORMALS: oropharynx normal Neck/C-Spine: COMMON NORMALS: no JVD Resp: COMMON NORMALS: normal respiratory effort and clear to auscultation bilaterally AUSCULTATION: clear to auscultation bilaterally Cardio: COMMON NORMALS: no JVD, regular rhythm, S1 normal heart sound present, S2 normal heart sound present and No murmurs present (Cardio) RHYTHM: regular rhythm HEART SOUNDS: S1 normal heart sound present and S2 normal heart sound present GI: COMMON NORMALS: Normal to inspection, nondistended, normoactive bowel sounds present, Soft to palpation and non-tender PALPATION: Yes Soft to palpation Extremity: COMMON NORMALS: no joint enlargement and no pedal edema Neuro: COMMON NORMALS: patient oriented x3 and moves all extremities SENSORIUM/ORIENTATION: Yes alert Skin: COMMON NORMALS: no rashes or lesions noted GENERAL SKIN EXAM: no rashes or lesions noted Discharge Data Data Completed and Pending: Completed Studies During Hospitalization Category Date Time Status CT angio headneck * [id number] Urge nt Cat Scan 06/10/20 21:[address] head wo con* [id number] Urgent Cat Scan 06/10/20 20:29 Completed XR chest 1V [place] ble [id number] Urgent Exams 06/10/20 20:29 Completed MR head wo con* [id number] Stat MRI 06/11/20 12:03 Completed Pending at discharge Category Date Time Status Comprehensive Met abolic Panel AM [facility] 06/13/20 04:00 Ordered Comprehensive Met abolic Panel AM [facility] Lab 06/14/20 04:00 Ordered Labs from last 24 hours 06/12/20 06/12/20 06/12/20 05:24 05:24 05:24 WBC 7.7 RBC 4.49 Hgb 12.7 Hct 40.0 MCV 89.1 MCH 28.3 MCHC 31.8 RDW 13.1 Plt Count 463 H MPV 9.6 Neut % (Auto) 61.3 Lymph % (Auto) 24.9 Bucks % (Auto) 10.6 Eos % (Auto) 2.2 Baso % (Auto) 0.6 Neut # (Auto) 4.73 Lymph # (Auto) 1.9 Bucks # (Auto) 0.8 Eos # (Auto) 0.2 Baso # (Auto) 0.1 Nucleated RBC % (a uto) 0 Nucleated RBCs # 0.0 ESR Sodium 141 Potassium 3.5 Chloride 107 Carbon Dioxide 27 Anion Gap 10.5 BUN 8 Creatinine 0.5 GFR Calculation Not Reportable Glucose 84 Calculated Osmolal ity 290 Calcium 8.4 L Phosphorus 3.5 Magnesium 2.1 Total Bilirubin 0.3 GGT 15 AST 15 ALT 14 Alkaline Phosphata se 128 H C-Reactive Protein Total Protein 5.7 L Albumin 3.3 L Globulin 2.4 06/11/20 06/10/20 05:50 20:34 WBC RBC Hgb Hct MCV MCH MCHC RDW Plt Count MPV Neut % (Auto) Lymph % (Auto) Bucks % (Auto) Eos % (Auto) Baso % (Auto) Neut # (Auto) Lymph # (Auto) Bucks # (Auto) Eos # (Auto) Baso # (Auto) Nucleated RBC % (a uto) Nucleated RBCs # ESR 6 Sodium Potassium Chloride Carbon Dioxide Anion Gap BUN Creatinine GFR Calculation Glucose Calculated Osmolal ity Calcium Phosphorus Magnesium Total Bilirubin GGT AST ALT Alkaline Phosphata se C-Reactive Protein 3.0 Total Protein Albumin Globulin Vitals: Last Vital Signs Temp 97.9 F 06/12/20 08:11 Pulse 63 06/12/20 08:15 Resp 16 06/12/20 08:11 BP 106/62 06/12/20 08:11 Pulse Ox 94 06/12/20 08:15 Discharge Plan Discharge Patient Disposition: Home Condition: Stable Prescriptions: New lisinopril 5 mg Tablet 5 mg PO DAILY Qty: 30 RF: 0 Continued amlodipine 10 mg tablet 10 mg PO DAILY@0800 RF: 0 montelukast [Singulair] 10 mg tablet 10 mg PO DAILY@0800 RF: 0 B-complex with vitamin C Capsule 1 cap PO DAILY RF: 0 mometasone 0.1 % solution 1 applic TOPICAL DAILY RF: 0 ketoconazole 2 % shampoo 1 applic TOPICAL DAILY RF: 0 fluocinolone 0.01 % oil 1 applic topical DAILY RF: 0 ciclopirox 0.77 % gel 1 applic TOPICAL DAILY Qty: 45 RF: 3 Discharge Orders: Discharge Order (Routine); Ordered 06/12/20 Ordered By: Boo Gage Referrals: Tammy Hardy MD [Physician] - 2 weeks (Please call Saturday to make a follow up appointment. HTN urgency, mumur) Jono Burnham DO [Primary Care Provider] - 4-7 days (Please call Saturday to schedule a follow up appointment.) Discharge Diet: Cardiac Discharge Activity: Increase activity as tolerated Patient Instructions: Lisinopril (By mouth), Headache, Chronic Hypertension (DC ) Activity Restrictions/Additional Instructions: Please monitor blood pressure 3 times daily. Target blood pressure 120/80. Maintain log to bring to your appointment. If you notice your blood pressure is significantly elevated and versus elevated despite taking her medications, above 190/90, and without improvement, please seek medical attention. Continue follow-up with your licensing representative with regards to aortic sclerosis, and discuss hypertension. Discharge Attestations Time Spent in Discharge Care*: greater than 30 min Quality Metrics Clinical Quality Measures During this hospital stay, did patient experience: None Coding Level of Care Code Acute Natural Resource Officer for Chg Fwd Diagnoses Headache R51.9 Intractability: not intractable Hypertensive urgency I16.0 Aortic valve sclerosis I35.8 Hypokalemia E87.6
[2020-06-12 11:48] VITALS: BP 135/81; PULSE 66; RESP 18; TEMP 36.7; O2SAT 92
[2020-06-12 12:11] VITALS: BP 135/81; PULSE 66; RESP 18; TEMP 36.7; O2SAT 92
--- NOTE | 2020-06-12 12:16 | PC.NURSE ---
Patient was taken out via wheelchair by Nurse Tech.
== END 2020-06-12 12:16 | disposition home or self-care (01) ==
LOC: ER 20:25 → MEDSURG 06-11 00:21
PROVIDERS: Admitting Provider Internal Medicine; Emergency Provider Emergency Medicine; PCP Internal Medicine; Visit Provider Internal Medicine
DX: R51.9 Headache, unspecified (principal); I16.0 Hypertensive urgency; I35.8 Other nonrheumatic aortic valve disorders; E87.6 Hypokalemia
CPT/HCPCS: 36415; 70450; 70496; 70498; 70551; 71045; 80053; 81003; 82550; 82977; 83735; 84100; 84484; 85025; 85610; 85651; 85730; 86140; 93005; 96360; 96361; 96365; 96366; 96375; 96376; 97161; 99285; G0378; J1650; J2060; J2405; J3010; J3490; J7030; Q9967

== ENCOUNTER 2021-05-19 08:46 | Outpatient (CLI) | payer MEDICARE, OTHER, SELFPAY ==
[2021-05-19 09:05] VITALS: BMI 25.0
[2021-05-19 09:20] VITALS: BP 136/82; PULSE 80; RESP 17; TEMP 36.8; O2SAT 95
[2021-05-19 09:43] VITALS: BP 131/85; PULSE 74; RESP 16; TEMP 37; O2SAT 95
[2021-05-19 10:40] VITALS: BP 132/80; PULSE 77; RESP 16; TEMP 37; O2SAT 91
== END 2021-05-19 10:43 | disposition home or self-care (01) ==
PROVIDERS: PCP Internal Medicine; Visit Provider Nurse Practitioner Family
DX: U07.1 COVID-19 (principal)
CPT/HCPCS: 96365

== ENCOUNTER 2021-10-23 07:59 | Outpatient (CLI) | payer MEDICARE, OTHER, SELFPAY ==
--- NOTE | 2021-10-23 08:45 | USCV_ITS ---
Sierar Pearce Age: 76 Gender: F : 1945 Exam Date: 10/23/2021 09:07 Ordering Phys: Evelin Prasad Technologist: Ewelina Dang Exam Location: [facility] – [place], [place] Indication: Systolic murmur BP: 130 / 78 HR: 66 Rhythm: Sinus Technical Quality: Adequate MEASUREMENTS (Male / Female) Normal Values 2D ECHO LV Diastolic Diameter PLAX 3.5 cm 4.2 - 5.9 / 3.9 - 5.3 cm LV Systolic Diameter PLAX 1.6 cm IVS Diastolic Thickness 1.7 cm 0.6 - 1.0 / 0.6 - 0.9 cm IVS Systolic Thickness 1.9 cm LVPW Diastolic Thickness 1.3 cm 0.6 - 1.0 / 0.6 - 0.9 cm LVPW Systolic Thickness 1.9 cm LVOT Diameter 2.1 cm LV Ejection Fraction 2D Teich 84.6 % LV Ejection Fraction MOD 2C 52.9 % LV Ejection Fraction 2C AL 53.5 % LA Diameter 3.5 cm LA Width 2.3 cm LA Height 4.3 cm RA Width 2.7 cm RA Height 4.1 cm Aorta at Sinotubular Diameter 3.0 cm DOPPLER AV Peak Velocity 282.0 cm/s LVOT Peak Velocity 91.0 cm/s AV Area Cont Eq vti 1.3 cm squared AV Area Cont Eq pk 1.1 cm squared MV Peak Velocity 106.0 cm/s MV Area PHT 2.6 cm squared Mitral E to A Ratio 0.6 MV E' Velocity 35.5 cm/s Mitral E to MV E' Ratio 11.5 Mitral E to LV E' Lateral Ratio 13.0 Mitral E to LV E' Septal Ratio 10.2 TR Peak Velocity 79.0 cm/s TR Peak Gradient 2.5 mmHg Right Atrial Pressure 3.0 mmHg Pulmonary Artery Systolic Pressu 5.5 mmHg PV Peak Velocity 61.0 cm/s RV Acceleration Time 0.1 s FINDINGS Left Ventricle Normal left ventricular size. LV systolic function is normal with EF of 55-60%. No regional wall motion abnormalities. Grade 1 diastolic dysfunction Right Ventricle The right ventricle is normal in size and function. Right Atrium The right atrium is normal in size. Left Atrium The left atrium is normal in size. Mitral Valve Grossly normal without significant stenosis or prolapse. There is no mitral regurgitation. Aortic Valve Aortic valve is not very well visualized however is thickened. Mild aortic stenosis with aortic valve area of 1.24 cm squared and mean gradient across aortic valve of 15 mmHg. Tricuspid Valve Structurally normal tricuspid valve without significant stenosis. Trace tricuspid regurgitation. Pulmonary artery systolic pressure is normal. Pulmonic Valve Not well-visualized Pericardium Normal pericardium without effusion. Aorta Normal ascending aorta dimension. IVC CONCLUSIONS Technically limited quality echocardiogram because of poor ultrasonic windows. LV systolic function is normal with EF 55-60%. Grade 1 diastolic dysfunction Thickened aortic valve. Mild aortic stenosis with aortic valve area of 1.24 cm. Mean gradient across valve of 15 mmHg Trace tricuspid regurgitation Compared to prior echocardiogram from 2019, patient now has mild aortic stenosis. Molina Acevedo MD (Electronically Signed) Final Date: 23 October 2021 17:47 S
== END 2021-10-23 08:00 | disposition home or self-care (01) ==
PROVIDERS: PCP Internal Medicine; Visit Provider Physician Assistant
DX: R01.1 Cardiac murmur, unspecified (principal)
CPT/HCPCS: 93306

== ENCOUNTER 2022-06-21 09:14 | Outpatient (CLI) | payer MEDICARE, OTHER, SELFPAY ==
--- NOTE | 2022-06-21 09:31 | MM_ITS ---
WS: [id number] BILATERAL SCREENING DIGITAL BREAST MAMMOGRAPHY WITH RAJENDRA DISPLACEMENT VIEWS. CAD PERFORMED. HISTORY: RT BREAST PAIN, pain after fall, evaluate implant for possible rupture. COMPARISON: 05/16/2018 Bilateral craniocaudal and mediolateral oblique views are performed with tomosynthesis and SM. Rajendra displacement views in CC and MLO projection also performed. Breasts composition: There are scattered areas of fibroglandular density. Pain surrounding the RIGHT breast implant. Pain is after fall. No hematoma identified. Implant is intact. Both implants are int act with heavy capsular contraction. No extravasation. Benign breast arterial calcifications. MM/[place] [id number] IMPRESSION: BI-RADS: 2-Benign FOLLOW-UP: 1 Year Follow-up
== END 2022-06-21 09:15 | disposition home or self-care (01) ==
LOC: RAD 09:23
PROVIDERS: PCP Physician Assistant; Visit Provider Physician Assistant
DX: N64.4 Mastodynia (principal)
CPT/HCPCS: 77062; G0279

== ENCOUNTER → 2022-11-29 13:19 | Outpatient (BNVA) | payer MEDICARE, OTHER, SELFPAY | PROVIDERS: PCP Internal Medicine; Visit Provider Dermatology | DX: L40.8 Other psoriasis (principal); L82.1 Other seborrheic keratosis; L57.0 Actinic keratosis; L82.0 Inflamed seborrheic keratosis; L81.4 Other melanin hyperpigmentation; Z85.828 Personal history of other malignant neoplasm of skin | CPT/HCPCS: 17000; 17003; 17110; 99213 ==

== ENCOUNTER → 2023-01-10 12:55 | Outpatient (BNVA) | payer MEDICARE, OTHER, SELFPAY | PROVIDERS: PCP Internal Medicine; Visit Provider Podiatrist Foot & Ankle Surgery | DX: S90.31XA Contusion of right foot, initial encounter; W22.8XXA Striking against or struck by other objects, initial encounter | CPT/HCPCS: 73630; 99213 ==

== ENCOUNTER → 2023-02-25 10:06 | Outpatient (BNVA) | payer MEDICARE, OTHER, SELFPAY | PROVIDERS: PCP Internal Medicine; Visit Provider Nurse Practitioner Family | DX: L23.9 Allergic contact dermatitis, unspecified cause (principal); Z85.828 Personal history of other malignant neoplasm of skin; L40.8 Other psoriasis; L82.1 Other seborrheic keratosis; L81.4 Other melanin hyperpigmentation | CPT/HCPCS: 99214 ==

== ENCOUNTER → 2023-03-11 08:27 | Outpatient (BNVA) | payer MEDICARE, OTHER, SELFPAY | PROVIDERS: PCP Internal Medicine; Visit Provider Podiatrist Foot & Ankle Surgery | DX: M76.71 Peroneal tendinitis, right leg | CPT/HCPCS: 73630; 99213 ==

== ENCOUNTER → 2023-04-09 14:02 | Outpatient (BNVA) | payer MEDICARE, OTHER, SELFPAY | PROVIDERS: PCP Internal Medicine; Visit Provider Podiatrist Foot & Ankle Surgery | DX: M76.71 Peroneal tendinitis, right leg (principal) | CPT/HCPCS: 99213 ==

== ENCOUNTER → 2023-04-23 13:40 | Outpatient (BNVA) | payer MEDICARE, OTHER, SELFPAY | PROVIDERS: PCP Internal Medicine; Visit Provider Dermatology | DX: L82.1 Other seborrheic keratosis (principal); D48.5 Neoplasm of uncertain behavior of skin | CPT/HCPCS: 11102; 99213 ==

== ENCOUNTER → 2023-05-20 08:31 | Outpatient (BNVA) | payer MEDICARE, OTHER, SELFPAY | PROVIDERS: PCP Internal Medicine; Visit Provider Dermatology | DX: L30.8 Other specified dermatitis (principal); C44.729 Squamous cell carcinoma of skin of left lower limb, including hip | CPT/HCPCS: 17262; 99213 ==

== ENCOUNTER → 2023-06-03 14:06 | Outpatient (BNVA) | payer MEDICARE, OTHER, SELFPAY | PROVIDERS: PCP Internal Medicine; Visit Provider Podiatrist Foot & Ankle Surgery | DX: M76.71 Peroneal tendinitis, right leg (principal); R20.0 Anesthesia of skin; R20.2 Paresthesia of skin; Q82.8 Other specified congenital malformations of skin | CPT/HCPCS: 17110 ==

== ENCOUNTER → 2023-06-27 14:02 | Outpatient (BNVA) | payer MEDICARE, OTHER, SELFPAY | PROVIDERS: PCP Internal Medicine; Visit Provider Dermatology | DX: L30.8 Other specified dermatitis (principal); L30.0 Nummular dermatitis; L57.0 Actinic keratosis; L81.4 Other melanin hyperpigmentation; Z85.828 Personal history of other malignant neoplasm of skin | CPT/HCPCS: 17000; 99213 ==

== ENCOUNTER → 2023-07-16 13:33 | Outpatient (BNVA) | payer MEDICARE, OTHER, SELFPAY | PROVIDERS: PCP Internal Medicine; Visit Provider Podiatrist Foot & Ankle Surgery | DX: M76.71 Peroneal tendinitis, right leg (principal); R20.0 Anesthesia of skin; R20.2 Paresthesia of skin; Q82.8 Other specified congenital malformations of skin | CPT/HCPCS: 17110 ==

== ENCOUNTER → 2023-07-29 14:07 | Outpatient (BNVA) | payer MEDICARE, OTHER, SELFPAY | PROVIDERS: PCP Internal Medicine; Visit Provider Dermatology | DX: L57.0 Actinic keratosis (principal); L30.8 Other specified dermatitis; L30.0 Nummular dermatitis; Z85.828 Personal history of other malignant neoplasm of skin | CPT/HCPCS: 17000; 99213 ==

== ENCOUNTER → 2023-08-21 07:48 | Outpatient (BNVA) | payer MEDICARE, OTHER, SELFPAY | PROVIDERS: PCP Internal Medicine; Visit Provider Dermatology | DX: L57.0 Actinic keratosis (principal) | CPT/HCPCS: 96573; J7308 ==

== ENCOUNTER → 2023-09-17 15:07 | Outpatient (BNVA) | payer MEDICARE, OTHER, SELFPAY | PROVIDERS: PCP Internal Medicine; Visit Provider Podiatrist Foot & Ankle Surgery | DX: Q82.8 Other specified congenital malformations of skin (principal) | CPT/HCPCS: 17110 ==

== ENCOUNTER → 2023-11-18 08:41 | Outpatient (BNVA) | payer MEDICARE, OTHER, SELFPAY | PROVIDERS: PCP Internal Medicine; Visit Provider Podiatrist Foot & Ankle Surgery | DX: Q82.8 Other specified congenital malformations of skin (principal); Z09 Encounter for follow-up examination after completed treatment for conditions other than malignant neoplasm | CPT/HCPCS: 99213 ==

== ENCOUNTER → 2023-12-31 14:48 | Outpatient (BNVA) | payer MEDICARE, OTHER, SELFPAY | PROVIDERS: PCP Internal Medicine; Visit Provider Dermatology | DX: L40.8 Other psoriasis (principal); L57.0 Actinic keratosis; S30.860A Insect bite (nonvenomous) of lower back and pelvis, initial encounter; X58.XXXA Exposure to other specified factors, initial encounter; L82.1 Other seborrheic keratosis; L81.4 Other melanin hyperpigmentation; L57.8 Other skin changes due to chronic exposure to nonionizing radiation; L85.3 Xerosis cutis; Z85.828 Personal history of other malignant neoplasm of skin | CPT/HCPCS: 99214 ==

== ENCOUNTER → 2024-01-16 07:57 | Outpatient (BNVA) | payer MEDICARE, OTHER, SELFPAY | PROVIDERS: PCP Internal Medicine; Visit Provider Podiatrist Foot & Ankle Surgery | DX: M79.671 Pain in right foot (principal); M19.071 Primary osteoarthritis, right ankle and foot | CPT/HCPCS: 73630; 99213 ==

== ENCOUNTER → 2024-02-24 12:47 | Outpatient (BNVA) | payer MEDICARE, OTHER, SELFPAY | PROVIDERS: PCP Internal Medicine; Visit Provider Dermatology | DX: D48.5 Neoplasm of uncertain behavior of skin (principal) | CPT/HCPCS: 99214 ==

== ENCOUNTER → 2024-03-02 09:24 | Outpatient (BNVA) | payer MEDICARE, OTHER, SELFPAY | PROVIDERS: PCP Internal Medicine; Visit Provider Podiatrist Foot & Ankle Surgery | DX: L84 Corns and callosities (principal) | CPT/HCPCS: 99213 ==

== ENCOUNTER → 2024-03-19 14:41 | Outpatient (BNVA) | payer MEDICARE, OTHER, SELFPAY | PROVIDERS: PCP Internal Medicine; Visit Provider Dermatology | DX: D48.5 Neoplasm of uncertain behavior of skin (principal); L40.8 Other psoriasis; Z08 Encounter for follow-up examination after completed treatment for malignant neoplasm; Z85.828 Personal history of other malignant neoplasm of skin | CPT/HCPCS: 99214 ==

== ENCOUNTER 2024-03-27 06:02 | Outpatient (CLI) | payer MEDICARE, OTHER, SELFPAY ==
--- NOTE | 2024-03-27 06:27 | USCV_ITS ---
Sierra Pearce Age: 78 Gender: F : 1945 Exam Date: 03/27/2024 06:37 Ordering Phys: Musa Prasad MD Technologist: Juan Casey Exam Location: [facility] [place] Indication: cardiac murmur BP: 126 / 65 HR: 69 Rhythm: Sinus Technical Quality: Adequate MEASUREMENTS (Male / Female) Normal Values 2D ECHO LV Diastolic Diameter PLAX 4.6 cm 4.2 - 5.9 / 3.9 - 5.3 cm IVS Diastolic Thickness 1.1 cm 0.6 - 1.0 / 0.6 - 0.9 cm IVS Systolic Thickness 1.8 cm LVPW Diastolic Thickness 1.7 cm 0.6 - 1.0 / 0.6 - 0.9 cm LVPW Systolic Thickness 1.6 cm LVOT Diameter 2.1 cm LV Ejection Fraction 2D Teich 66.0 % LV Ejection Fraction MOD 4C 61.6 % LV Ejection Fraction MOD 2C 60.4 % LV Ejection Fraction 2C AL 60.5 % LA Diameter 4.1 cm RA Systolic Volume 4C AL 34.8 ml RA Systolic Volume 4C MOD 35.0 ml LA Sys Volume AL 47.3 cm cubed LA Sys Volume Index AL 26.6 cm cubed/m squared Aorta at Sinotubular Diameter 2.2 cm IVC Diameter 1.9 cm M-MODE LA Ao Ratio MM 1.2 AV Cusp Separation MM 0.6 cm DOPPLER AV Peak Velocity 314.0 cm/s LVOT Peak Velocity 75.0 cm/s AV Area Cont Eq vti 0.9 cm squared AV Area Cont Eq pk 0.9 cm squared MV Peak Velocity 129.3 cm/s MV Area PHT 5.2 cm squared Mitral E to A Ratio 0.7 TV Peak Velocity 292.5 cm/s TR Peak Velocity 346.0 cm/s TR Peak Gradient 47.9 mmHg TR Mean Velocity 278.0 cm/s TR Mean Gradient 33.5 mmHg TR Velocity Time Integral 98.8 cm PV Peak Velocity 87.3 cm/s RV Ejection Time 0.3 s FINDINGS Left Ventricle Left ventricle is normal size. LV systolic function is normal with EF of 55 to 60%. No regional wall motion abnormalities are seen. Mild to moderate left ventricular hypertrophy. Grade 1 diastolic dysfunction. Right Ventricle Normal in size and function Right Atrium Normal in size Left Atrium Normal in size Mitral Valve Mild mitral annular calcification. Trace mitral regurgitation. Aortic Valve Aortic valve is thickened. Moderate to severe aortic stenosis with aortic valve area of 0.88cm squared and mean gradient of 25 mmHg. Tricuspid Valve Mild tricuspid regurgitation. Insufficient TR jet to calculate RVSP Pulmonic Valve Not well visualized Pericardium Normal Aorta Normal in size IVC Appears to be normal CONCLUSIONS LV systolic function is normal with EF of 55 to 60%. Mild to moderate left ventricle hypertrophy Grade 1 diastolic dysfunction. Trace mitral regurgitation Moderate to severe aortic stenosis Mild tricuspid regurgitation Compared to prior echocardiogram from 2021, aortic stenosis has progressed significantly and is moderate to severe now. Molina Acevedo MD (Electronically Signed) Final Date: 28 March 2024 18:40 S
== END 2024-03-27 06:03 | disposition home or self-care (01) ==
PROVIDERS: PCP Internal Medicine; Visit Provider Family Medicine
DX: I50.30 Unspecified diastolic (congestive) heart failure (principal); I51.7 Cardiomegaly; I35.0 Nonrheumatic aortic (valve) stenosis
CPT/HCPCS: 93306

== ENCOUNTER 2024-04-13 09:08 | Outpatient (CLI) | payer MEDICARE, OTHER, SELFPAY ==
--- NOTE | 2024-04-13 09:10 | MM_ITS ---
WS: [id number] BILATERAL SCREENING DIGITAL BREAST MAMMOGRAPHY WITH RAJENDRA DISPLACEMENT VIEWS. CAD PERFORMED. HISTORY: Screening. COMPARISON: 06/21/2022, 05/16/2018 Bilateral craniocaudal and mediolateral oblique views are performed with tomosynthesis and SM. Rajendra displacement views in CC and MLO projection also performed. Breasts composition: There are scattered areas of fibroglandular density. Prepectoral implants are intact. Moderate capsular contraction surrounding the implants. Vascular vincent cifications and a few scattered punctate calcifications are identified. MM/MM [facility] tomosynthesis [id number] IMPRESSION: BI-RADS: 2 - Benign. FOLLOW-UP: 1 Year Follow-up
== END 2024-04-13 09:09 | disposition home or self-care (01) ==
LOC: RAD 09:09
PROVIDERS: PCP Family Medicine; Visit Provider Family Medicine
DX: Z12.31 Encounter for screening mammogram for malignant neoplasm of breast (principal); R92.323 Mammographic fibroglandular density, bilateral breasts; R92.1 Mammographic calcification found on diagnostic imaging of breast; Z98.82 Breast implant status
CPT/HCPCS: 77063; 77067

== ENCOUNTER → 2024-05-04 10:06 | Outpatient (BNVA) | payer MEDICARE, OTHER, SELFPAY | PROVIDERS: PCP Family Medicine; Visit Provider Podiatrist Foot & Ankle Surgery | DX: L84 Corns and callosities (principal); Q82.8 Other specified congenital malformations of skin; M20.41 Other hammer toe(s) (acquired), right foot; M20.42 Other hammer toe(s) (acquired), left foot | CPT/HCPCS: 99213 ==

== ENCOUNTER 2024-05-19 08:53 | Outpatient (CLI) | payer MEDICARE, OTHER, SELFPAY ==
--- NOTE | 2024-05-19 08:58 | CT_ITS ---
WS: [id number] CT ABDOMEN AND PELVIS WITH CONTRAST HISTORY: PANCREAS disorder TECHNIQUE: Imaging performed of the abdomen and pelvis with IV contrast. Single phase imaging of the abdomen. Coronal and sagittal reformats are submitted. All CT scans at [facility] use at least one of these dose optimization techniques: automated exposure control; mA and/or kV adjustment per patient size (includes targeted exams where dose is matched to clinical indication); or iterative reconstruction. IV CONTRAST: Omnipaque 350; 100 mL IV. Oral contrast: Yes. DLP: 839.06 mGy.cm COMPARISON: Ultrasound abdomen 05/05/2024 Lower thorax: Elevated LEFT hemidiaphragm with stomach, omental fat and splenic flexure extending into the lower thorax. Bilateral partially calcified breast implants. Mild LEFT heart enlargement. Small hiatal hernia. Liver/biliary system: Normal size with no intrahepatic dilatation. Gallbladder: Normal. No gallstones or wall thickening. No pericholecystic fluid. Pancreas: Mild diffuse pancreatic atrophy. There is no pancreatic duct dilatation. No pancreatic mass. There are a few fatty protrusions within the pancreas. There is no mass. Spleen: Normal size spleen. There are numerous tiny hypodense nodules scattered throughout the spleen which may be due to sinusoids. No abnormality was noted on the recent ultrasound within the spleen. Adrenal glands: Normal. Right kidney: Normal size kidney. No mass or obstruction. Left kidney: Normal size LEFT kidney. There is a small parapelvic cyst measuring 1.4 cm which corresponds to the finding of fluid in the renal pelvis seen on the prior ultrasound. 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 No enhancing mass. Aorta: Moderate atherosclerosis with no aneurysm. Extensive atherosclerotic plaque within the mesenteric arteries with a component of stenosis in the mid SMA. Lymphadenopathy: None. Free fluid: None. GI tract: No GI tract obstruction. No small bowel obstruction. Diffuse moderate constipation. Normal appendix. Moderate diverticular disease in the distal colon without acute diverticulitis. Rectocele suspected. Abdominal wall: Unremarkable abdominal wall. No hernia. Pelvis: No free fluid or adenopathy within the pelvis. Prior hysterectomy. Bones: Advanced degenerative lumbar spondylosis. No fractures. No osseous destruction. CT/CT abdomen pelvis w con* [id number] IMPRESSION: 1. Normal gallbladder. Gallbladder is not contracted and there is no evidence for acute cholecystitis. 2. Pancreatic atrophy. No pancreatic mass identified. No pancreatic duct dilat ation. 3. Small LEFT central renal parapelvic cyst corresponds to the fluid seen on t he recent ultrasound. 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 No solid mass. 4. Moderate atherosclerosis aorta and mesenteric arteries. 5. Prior hysterectomy. 6. Elevated LEFT hemidiaphragm. 7. Numerous scattered hypodense foci within the spleen. This may be due to nor mal sinusoids, hemangiomas, metastatic disease or sarcoidosis. Please note the recent ultrasound was negative. Suspect benign process.
[2024-05-19] MEDS: iohexol 350 mg/mL 500 mL Btl (per mL) PO (10:15)
[2024-05-19] MEDS: iohexol 350 mg/mL 500 mL Btl (per mL) IV (10:16)
[2024-05-19 11:16] LABS: Blood Urea Nitrogen 9 mg/dL (8-23)
== END 2024-05-19 08:54 | disposition home or self-care (01) ==
PROVIDERS: PCP Family Medicine; Visit Provider Family Medicine
DX: K86.89 Other specified diseases of pancreas (principal); N28.1 Cyst of kidney, acquired; R93.422 Abnormal radiologic findings on diagnostic imaging of left kidney; I70.0 Atherosclerosis of aorta; K55.1 Chronic vascular disorders of intestine; Z98.890 Other specified postprocedural states; R93.89 Abnormal findings on diagnostic imaging of other specified body structures; Z98.82 Breast implant status; I51.7 Cardiomegaly; K44.9 Diaphragmatic hernia without obstruction or gangrene; K59.00 Constipation, unspecified; K57.30 Diverticulosis of large intestine without perforation or abscess without bleeding; M47.896 Other spondylosis, lumbar region
CPT/HCPCS: 74177; 82565; 84520

== ENCOUNTER → 2024-06-15 07:58 | Outpatient (BNVA) | payer MEDICARE, OTHER, SELFPAY | PROVIDERS: PCP Family Medicine; Visit Provider Podiatrist Foot & Ankle Surgery | DX: L84 Corns and callosities (principal); Q82.8 Other specified congenital malformations of skin; M20.41 Other hammer toe(s) (acquired), right foot; M20.42 Other hammer toe(s) (acquired), left foot | CPT/HCPCS: 99213 ==

== ENCOUNTER 2024-06-21 22:40 | Emergency (ER) | payer MEDICARE, OTHER, SELFPAY ==
[2024-06-21 22:44] VITALS: BP 162/106; PULSE 68; RESP 18; TEMP 36.6; O2SAT 98; BMI 26.4
[2024-06-21 22:51] VITALS: BP 162/106; PULSE 70; O2SAT 94
[2024-06-21 23:21] VITALS: BP 174/87; PULSE 59; O2SAT 95
--- NOTE | 2024-06-21 23:32 | ED_ITS ---
HPI - Headache 2 General: Chief Complaint: Headache Stated Complaint: [place] Time Seen by Provider: 06/21/24 23:32 History of Present Illness: Patient presents with sudden onset vertigo and dizziness that occurred when she bent over to tie her shoes and then sat up. She experienced violent vertigo with associated nausea, which she reports has never happened before. A similar episode occurred during her ED stay when attempting to stand up for imaging. Patient denies any prior history of such episodes. Medical history is significant for hypertension, managed with amlodipine, which she reports keeps her blood pressure well-controlled, though she does not check it frequently. Patient denies using home oxygen and reports no known history of electrolyte abnormalities. At the time of examination, patient denies current dizziness and states she is feeling better. Related Data Home Medications ?Medication ?Instructions ?Recorded ?Confirmed B-complex with vitamin C 1 cap PO DAILY 07/15/1906/06 amlodipine 10 mg tablet 10 mg PO DAILY@0800 07/15/19 06/15/24 montelukast 10 mg tablet 10 mg PO DAILY@0807/15/19 06/15/24 (Singulair) ketoconazole 2 % shampoo 1 applic topical DAILY 10/1306/15/24 cetirizine 10 mg tablet mg PO 03/11/23 06/15/24 Previous Rx's ?Medication ?Instructions ?Recorded ciclopirox 8 % topical solution 1 applic topical DAILY 4 weeks 11/27/21 #6.6 mL meloxicam 15 mg tablet 15 mg PO DAILY 30 days #30 t abs 03/11/23 fluorouracil 5 % topical cream 1 applic topical DAILY #40 grams 07/16/23 (Efudex) Allergies Allergy/AdvReac Type Severity Reaction Status Date / Time hydrocodone (From Panlor Allergy Unknown Unknown Verified 06/21/24 22:51 (hydrocodone-acetamin)) levofloxacin (From Levaquin) AdvReac ADR-Muscle Verified 06/21/24 22:51 Pain PFSH ED 2 PFSH: Medical History Hypertension Osteoarthritis Aortic valve sclerosis HTN (hypertension) with goal to be determined Tarsal tunnel syndrome Hyponatremia History of cystocele REPAIRED WITH RECTOCELE Murmur Recurrent UTI Surgical History S/P augmentation mammoplasty Hx of hysterectomy with oophorectomy Hx of foot surgery History of total knee arthroplasty BILATERAL History of repair of rectocele History of Achilles tendon repair Family History Mother CAD (coronary artery disease) Father CAD (coronary artery disease) Social History Smoking and tobacco/nicotine status: former use of tobacco/nicotine Alcohol intake: never Substance/Drug Use: never Adopted: No Caregiver/support person: No Lives independently: No Household members: spouse Marital status: Current occupational status: retired Current gender identity: Female Physical Exam 2 Const: COMMON NORMALS: no acute distress, patient oriented x3, alert and well nourished HENMT: COMMON NORMALS: normocephalic HEAD & SCALP: normocephalic Eye: COMMON NORMALS: Equal, round and reactive pupils present, EOMs intact bilaterally and conjunctivae normal CONJUNCTIVA: Yes conjunctivae normal P UPIL: Yes Equal, round and reactive pupils present Neck/C-Spine: COMMON NORMALS: full ROM, no lymphadenopathy, supple, no meningeal signs, no JVD and Thyroid normal THYROID: Thyroid normal Chest: COMMONS NORMALS: normal inspection of the chest and normal palpation of entire chest wall Resp: COMMON NORMALS: normal respiratory effort, No retractions, No use of accessory muscles, clear to auscultation bilaterally and percussion normal A USCULTATION: clear to auscultation bilaterally PERCUSSION: percussion normal Cardio: COMMON NORMALS: no JVD GI: COMMON NORMALS: Normal to inspection, nondistended, normoactive bowel sounds present, Soft to palpation, non-tender, No hepatosplenomegaly present, no masses and no bruits PALPATION: Yes Soft to palpation and Yes No hepatosplenomegaly present : COMMON NORMALS: Yes no CVA tenderness BLADDER/KIDNEY EXAM: Yes no CVA tenderness Back/Pelvis: COMMON NORMALS: no CVA tenderness Extremity: COMMON NORMALS: normal to inspection, full ROM, capillary refill normal, no joint enlargement, no clubbing, cyanosis or edema, no calf tenderness and no pedal edema Neuro: COMMON NORMALS: patient oriented x3 SENSORIUM/ORIENTATION: Yes alert MENINGEAL SIGNS: Yes no meningeal signs Skin: COMMON NORMALS: no rashes or lesions noted, turgor normal and no jaundice GENERAL SKIN EXAM: no rashes or lesions noted and turgor normal Course 2 Vital Signs: Vital signs: Vital Signs Temperature 97.9 F 06/21/24 22:44 Pulse Rate 59 L 06/22/24 00:21 Respiratory Rate 18 06/21/24 22:44 Blood Pressure 155/82 06/22/24 00:21 Pulse Oximetry 94 06/22/24 00:21 Oxygen Delivery Me thod Room Air 06/21/24 22:44 MDM - Headache Medical Decision Making 1. Acute Vertigo/Positional Dizziness: - Likely benign positional vertigo given presentation and normal CT findings - Patient to exercise caution with positional changes - Will perform supervised standing test before discharge to ensure stability 2. Hypokalemia: - Requires follow-up with primary care physician - May be contributing to symptoms - Recommend increasing dietary potassium intake 3. Disposition: - Pending official CT report for discharge - Will perform supervised ambulation test prior to discharge - Follow up with PCP for potassium level recheck and further evaluation as needed Lab Data 06/21/24 22:30 06/21/24 22:[address] 06/21/24 23:32 IMPRESSION: 1. No acute intracranial hemorrhage. 2. Moderate age-related changes. A few other chronic/incidental findings above. Stable from prior. Laboratory Results WBC 9.43 10^3/uL (3.29-11.43) 06/21/24 22:30 RBC 4.95 10^6/uL (3.85-5.65) 06/21/24 22:30 Hgb 14.00 g/dL (11.27-16.99) 06/21/24 22:30 Hct 42.4 % (36-47) 06/21/24 22:30 MCV 85.7 fl (85-98) 06/21/24 22:30 MCH 28.3 pg (27-33) 06/21/24 22:30 MCHC 33.0 g/dL (30-55) 06/21/24 22:30 RDW 13.2 % (12.1-15.1) 06/21/24 22:30 Plt Count 579 10^3/cmm (157-399) H 06/21/24 22:30 MPV 9.8 fL (7.4-10.4) 06/21/24 22:30 Neut % (Auto) 60.1 % 06/21/24 22:30 Lymph % (Auto) 27.7 % 06/21/24:30 [place] % (Auto) 9.1 % 06/21/24: Eos % (Auto) 2.1 % 06/21/24: Baso % (Auto) 0.7 % 06/21/24: Neut # (Auto) 5.66 10^3/uL (1.8-7.7) 06/21/24: Lymph # (Auto) 2.6 10^3/uL (0.8-4.8) 06/21/24: [place] # (Auto) 0.9 10^3/uL (0.2-0.9) 06/21/24: Eos # (Auto) 0.2 10^3/uL (0.0-0.8) 06/21/24: Baso # (Auto) 0.1 10^3/uL (0.0-0.1) 06/21/24: Nucleated RBC % (auto) 0 % 06/21/24: Nucleated RBCs # 0.0 /100WBC 06/21/24: ESR 4 mm/hr (0-15) 06/21/24 22: Sodium 136 mmol/L (136-145) 06/21/24: Potassium 3.2 mmol/L (3.5-5.1) L 06/21/24: Chloride 98 mmol/L (98-107) 06/21/24: Carbon Dioxide 23 mmol/L (22-29) 06/21/24: Anion Gap 18.2 (5-19) 06/21/24: BUN 10 mg/dL (8-23) 06/21/24: Creatinine 0.5 mg/dL (0.5-0.9) 06/21/24: GFR Calculation Not Reportable 06/21/24: Glucose 139 mg/dL (65-115) H 06/21/24: Calculated Osmolality 283 mOsm/kg (285-295) L 03/16/25 22:30 Calcium 9.2 mg/dL (8.5-10.5) 06/21/24 22:30 Magnesium 2.0 mg/dL (1.7-2.3) 06/21/24 22:30 All radiology interpretation(s) finalized by discharge Discharge Plan Discharge Patient Disposition: Home Condition: Stable Prescriptions: No Action amlodipine 10 mg tablet 10 mg PO DAILY@0800 montelukast [Singulair] 10 mg tablet 10 mg PO DAILY@0800 B-complex with vitamin C Capsule 1 cap PO DAILY ketoconazole 2 % shampoo 1 applic TOPICAL DAILY ciclopirox 8 % solution 1 applic topical DAILY 28 Days Qty: 6.6 6RF Rx Instructions: Apply to nails daily. Do not wash nails for 8hr post application; remove w/alcohol every 7 days cetirizine 10 mg tablet PO meloxicam 15 mg tablet 15 mg PO DAILY 30 Days Qty: 30 1RF fluorouracil [Efudex] 5 % cream 1 applic topical DAILY Qty: 40 0RF Discharge Orders: Discharge ED (Routine); Ordered 06/22/24 Ordered By: Carlos La Referrals: Musa Prasad MD [Primary Care Provider] - Discharge Diet: As Directed Discharge Activity: Limit activity as instructed Patient Instructions: Opioid Safety, Pain Management Activity Restrictions/Additional Instructions: 1. transfer and line up worker Meclizine and take as directed. Call PCP in AM if still symptomatic. 2. Return for new / worsening symptoms. Print Language: Niuean Coding Level of Care Code ED Environmental Remediation Consultant for Maninder Gracia
--- NOTE | 2024-06-21 23:32 | CTR_ITS ---
PROCEDURE INFORMATION: Exam: CT Head Without Contrast Exam date and time: 06/21/2024 11:38 PM Age: 78 years old Clinical indication: Pain; Headache; Tension TECHNIQUE: Imaging protocol: Computed tomography of the head without contrast. Radiation optimization: All CT scans at this facility use at least one of these dose optimization techniques: automated exposure control; mA and/or kV adjustment per patient size (includes targeted exams where dose is matched to clinical indication); or iterative reconstruction. COMPARISON: MR head wo con* [id number] 06/11/2020 1:12 PM RADIATION DOSE METRICS: Total DLP (mGy-cm): 1273.88 FINDINGS: Brain: No focal hemorrhage or midline shift is identified. The ventricles and parenchyma show moderate atrophy and chronic bicerebral white matter ischemic change. Few old areas of left cerebellar and bilateral occipital encephalomalacia. A few scattered old lacunes are likely. Cerebral ventricles: No ventriculomegaly or evidence of hydrocephalus. Paranasal sinuses: The partially assessed sinuses are grossly clear. Mastoid air cells: Visualized mastoid air cells are well aerated. Bones: No displaced skull fracture is noted. Soft tissues: Unremarkable. Vasculature: Diffuse vascular calcifications are present. CT/CT head wo con* [id number] IMPRESSION: 1. No acute intracranial hemorrhage. 2. Moderate age-related changes. A few other chronic/incidental findings above. Stable from prior.
[2024-06-21 23:41] LABS: Erythrocyte Sedimentation Rate 4 mm/hr (0-15)
[2024-06-21 23:51] VITALS: BP 153/82; PULSE 61; O2SAT 95
[2024-06-21 23:52] LABS: Basophils # 0.1 10^3/uL (0.0-0.1); Basophils % 0.7 %; Eosinophils # 0.2 10^3/uL (0.0-0.8); Eosinophils % 2.1 %; Hematocrit 42.4 % (36-47); Lymphocytes # 2.6 10^3/uL (0.8-4.8); Lymphocytes % 27.7 %; Mean Corpuscular Hemoglobin 28.3 pg (27-33); Mean Corpuscular Volume 85.7 fl (85-98); Mean Platelet Volume 9.8 fL (7.4-10.4); Monocytes # 0.9 10^3/uL (0.2-0.9); Monocytes % 9.1 %; Neutrophils # 5.66 10^3/uL (1.8-7.7); Neutrophils % 60.1 %; Nucleated Red Blood Cells % 0 %; Platelet Count 579 10^3/cmm (157-399); Red Blood Count 4.95 10^6/uL (3.85-5.65); Red Cell Distribution Width 13.2 % (12.1-15.1); White Blood Count 9.43 10^3/uL (3.29-11.43)
[2024-06-22 00:09] LABS: Anion Gap 18.2 (5-19); Blood Urea Nitrogen 10 mg/dL (8-23); Calcium 9.2 mg/dL (8.5-10.5); Carbon Dioxide 23 mmol/L (22-29); Chloride 98 mmol/L (98-107); Creatinine Clr Calc Pharmacy 57.6849; Glucose 139 mg/dL (65-115); Osmolality Calculated 283 mOsm/kg (285-295); Potassium 3.2 mmol/L (3.5-5.1); Sodium 136 mmol/L (136-145)
[2024-06-22 00:21] VITALS: BP 155/82; PULSE 59; O2SAT 94
[2024-06-22 01:00] VITALS: BP 154/83; PULSE 62; O2SAT 92
[2024-06-22] MEDS: meclizine 25 mg tablet PO (01:17)
[2024-06-22 02:30] VITALS: BP 149/78; PULSE 65; O2SAT 89
[2024-06-22 02:42] VITALS: BP 154/79; PULSE 62; O2SAT 92
== END 2024-06-22 02:43 | disposition home or self-care (01) ==
PROVIDERS: Emergency Provider Family Medicine; PCP Family Medicine
DX: R42 Dizziness and giddiness (principal); E87.6 Hypokalemia; Z87.891 Personal history of nicotine dependence; I10 Essential (primary) hypertension
CPT/HCPCS: 70450; 80048; 83735; 85025; 85651; 99284; J8597

== ENCOUNTER → 2024-06-22 15:00 | Outpatient (BNVA) | payer MEDICARE, OTHER, SELFPAY | PROVIDERS: PCP Family Medicine; Visit Provider Internal Medicine Cardiovascular Disease | DX: R07.89 Other chest pain (principal) | CPT/HCPCS: 93005; 99204 ==

== ENCOUNTER → 2024-06-30 15:02 | Outpatient (BNVA) | payer MEDICARE, OTHER, SELFPAY | PROVIDERS: PCP Family Medicine; Visit Provider Dermatology | DX: L30.9 Dermatitis, unspecified (principal); L40.8 Other psoriasis; L57.8 Other skin changes due to chronic exposure to nonionizing radiation; Z08 Encounter for follow-up examination after completed treatment for malignant neoplasm; Z85.828 Personal history of other malignant neoplasm of skin | CPT/HCPCS: 99214 ==

== ENCOUNTER 2024-07-14 07:10 | Outpatient (CLI) | payer MEDICARE, OTHER, SELFPAY ==
[2024-07-14] VITALS (17 sets, daily range): BP systolic 112–150; BP diastolic 62–85; PULSE 56–76; RESP 6–22; TEMP 36.9–37.1; O2SAT 92–98; BMI 24.6
--- NOTE | 2024-07-14 07:30 | XACV_ITS ---
Exam Room: 2 Ht: 165 cm Wt: 67 kg BSA: 1.76 m2 Gender: Female : 1945 Any Known Allergies: Other Exam Priority: Routine Procedure(s): Procedure Description: Diagnostic procedure Procedure Description: Left Heart Catheterization Procedure Description: Coronary Angiography Antony VARGHESE; Diagnostic Cath Status: Elective Diagnostic Findings * Left Main has no disease. * Circumflex has no disease. * Distal Left Anterior Descending: significant 80% stenosis, MEJIA: 3 flow. * Distal Left Anterior Descending: severe 90% stenosis, MEJIA: 3 flow. * Proximal Right Coronary Artery: obstructive 70% stenosis, MEJIA: 3 flow. * Mid Right Coronary Artery: significant 80% stenosis, MEJIA: 3 flow. * Distal Right Coronary Artery: minimal 30% stenosis, MEJIA: 3 flow. * 1st Diagonal: significant 80% stenosis, MEJIA: 3 flow. * First Obtuse Marginal Branch Segment: severe 90% stenosis, MEJIA: 3 flow. * First Obtuse Marginal Branch Segment: significant 80% stenosis, MEJIA: 3 flow. * BloodVessel1: severe 90% stenosis, MEJIA: 3 flow. * Coronary angiography shows right dominance. Conclusions 1. There is severe coronary artery disease with two vessel disease. Recommendations * 1-Return to recovery for close monitoring and routine PCI care 2-Statin with LDL goal of 70 mg/dl, aspirin 81 mg p.o. daily for life long 3-Consult for CABG with AVR vs TVR vs Multiple PCI, patient referred to [facility] to Dr Guerin 4-Optimal medical management for OR 5-Follow up with Dr. Hardy in four weeks and establish care with primary care physician. Pressures Phase:Rest AO : 147 / 74 ( 102 ) @ 11:55:00 AM 116 / 69 ( 90 ) @ 11:57:00 AM 137 / 70 ( 96 ) @ 12:15:00 PM 131 / 68 ( 93 ) @ 12:16:00 PM LV : 169 / 0 / 17 @ 12:15:00 PM 164 / 0 / 15 @ 12:16:00 PM Valves Phase:DefaultPhase AV : 32.0 @ 11:22:47 AM AV Mean Gradient: 44.0 @ 11:22:47 AM Clinical Evaluation EBL: 5mL-10mL Procedural Details Procedure Consent Obtained. Pre-Procedure Time Out. Identified patient by full name and date of as verbalized by the patient/guarantor. Does the consent match the physician's order: Yes. Accurate & Complete Informed Consent: Yes. Inpatient/Outpatient History & Physical on Chart: Yes. If H&P is completed, is and addenduem needed: No; If yes, is the addendum complete: N/A. Visualize and Verify Site with Patient/Guarantor: N/A. Relevant Radiology Images available: Yes. Pre-op teaching completed and patient verbalized understanding. The risks, benefits, and alternatives of sedation and/or procedure were discussed by physician. The patient agrees to continue. Procedure started. [facility] Clinical Fraility Score: 4: Vulnerable. Electronics Engineer Indications: Valvular Disease. Chest Pain Symptom Assessment: Non-anginal Chest Pain. Correct patient, site and procedure confirmed by cath team. PERRLA. Strong, equal hand interlocker bilaterally. Lungs clear x 5 lobes. IV Site on Arrival: 20 gauge in the left anticubital. IV Fluids: 0.9% NaCl at KVO. 0 mL infused prior to lab specialist. Pre Procedural Pulses: bilateral dorsalis pedis was Doppled. Pre Procedural Pulses: bilateral posterior tibial was Doppled. Pre Procedural Pulses: bilateral radial was 3+. Oxygen started at 2liters/min via nasal canula. right groin was prepped with chloroprep then draped in the usual sterile fashion. right radial was prepped with chloroprep then draped in the usual sterile fashion. Physician notified. Baseline sample Acquired. HR: 76 BPM. Physician arrived. Physician scrubbed in. Immediate Pre-Procedure Time Out. Correct Patient: Yes; Correct Procedure: Yes; Correct Site: Yes; Correct Patient Position: Yes; Correct Supplies: Yes; Dried Flammable Prep: Yes; Blood Products Available: N/A;. Lidocaine 1% infiltrated to the right radial. Arterial access obtained. A 5 greenlandic TIG catheter in over wire. Multiple views taken of left coronary artery. Catheter redirected to the RCA. Multiple views taken of right coronary artery. Catheter removed over the exchange wire. A 5 greenlandic MPA2 catheter in over wire. Wire out. Glidewire inserted. Wire out. Exchange wire inserted. Catheter removed over the exchange wire. Juaquin catheter inserted OTW. Gradient taken: AO 137/70(96); LV 169/0,17; Mean: 44mmHg, Peak to Peak: 32mmHg, SEP: 18sec/min; HR: 61 BPM; SpO2: 97%. Catheter removed over the exchange wire. A TR Band was successful obtaining hemostatsis at the Right Radial artery insertion site. Post Procedure: Pulses reassessed and unchanged. PERRLA. Strong, equal hand interlocker bilaterally. No VTE prophylaxis required. Medication's Wasted: Lidocaine 1% = 18 mL. Total IV fluids: 35 mL. Medication's Wasted: Nitro = 49.8 mcg. Medication's Wasted: Heparin = 1000 units. Medication's Wasted: Other = Fentanyl 50 mcg. Complications: None. Post-op diagnosis: CAD. Estimated blood loss: 5mL-10mL. Responsiveness - Normal response to verbal stimuli; alert and oriented, PERRLA. Airway - Unaffected, no intervention required; spontaneous ventilation. Circulation: W/N/L, pulses unchanged. Nausea/Vomiting: No. Procedure completed. Patient transferred by wheelchair to 1st floor. Vital chart was stopped. Access Site Site: Right Radial artery Sheath Size: 6 Fr Hemostasis Method: TR Band Hemostasis Success: Successful Procedure Medications Start: 10:35 AM Stop: 10:35 AM Medication: Versed Amount: 1 mg Route: I.V. Start: 10:35 AM Stop: 10:35 AM Medication: Fentanyl Amount: 50 mcg Start: 10:51 AM Stop: 10:51 AM Medication: Nitrogylcerin Amount: 200 mcg Route: I.A. Start: 10:53 AM Stop: 10:53 AM Medication: Heparin Amount: 5000 units Route: I.V. I, the attending physician, have reviewed and verified all procedure medications. Yes, all medications given per verbal order History/Risk Factors Hypertension: Yes Dyslipidemia: No Peripheral Arterial Disease (PAD): No Myocardial Infarction (OR): No Obesity: No Renal Disease: No Tobacco Use: Former Prior Interventions PCI: No CABG: No Valve Surgery: No Report Signatures Finalized by Tammy Hardy MD on 07/28/2024 10:00 PM
[2024-07-14 07:51] LABS: Basophils # 0.1 10^3/uL (0.0-0.1); Basophils % 0.8 %; Eosinophils # 0.2 10^3/uL (0.0-0.8); Eosinophils % 1.7 %; Hematocrit 42.5 % (36-47); Lymphocytes # 1.7 10^3/uL (0.8-4.8); Lymphocytes % 19.3 %; Mean Corpuscular Hemoglobin 27.9 pg (27-33); Mean Corpuscular Volume 87.1 fl (85-98); Mean Platelet Volume 9.2 fL (7.4-10.4); Monocytes # 0.8 10^3/uL (0.2-0.9); Monocytes % 9.8 %; Neutrophils # 5.84 10^3/uL (1.8-7.7); Neutrophils % 68.2 %; Nucleated Red Blood Cells % 0 %; Platelet Count 538 10^3/cmm (157-399); Red Blood Count 4.88 10^6/uL (3.85-5.65); Red Cell Distribution Width 13.4 % (12.1-15.1); White Blood Count 8.58 10^3/uL (3.29-11.43)
[2024-07-14] MEDS: aspirin 325 mg Tablet PO (07:52)
[2024-07-14] MEDS: diphenhydrAMINE 50 mg Capsule PO (07:53)
[2024-07-14 08:06] LABS: Blood Urea Nitrogen 9 mg/dL (8-23); Calcium 9.1 mg/dL (8.5-10.5); Carbon Dioxide 29 mmol/L (22-29); Chloride 100 mmol/L (98-107); Creatinine Clr Calc Pharmacy 55.8591; Glucose 95 mg/dL (65-115); Osmolality Calculated 284 mOsm/kg (285-295); Sodium 138 mmol/L (136-145)
[2024-07-14 08:09] LABS: Anion Gap 12.9 (5-19); Potassium 3.9 mmol/L (3.5-5.1)
--- NOTE | 2024-07-14 10:40 | W.PM.OPSUD ---
Surgery/Procedure H&P Update DATE OF PROCEDURE: July 14, 2024 DATE H&P PERFORMED: 06/22/24 H&P UPDATE INFORMATION: I have reviewed H&P completed within last 30 days, I have examined patient prior to procedure and No changes to prior documentation PREOP DIAGNOSIS: Prevalve/aortic valve stenosis PLANNED PROCEDURE: Operation Date: 07/14/24 08:30 Proposed Procedures p Cardiac Catheterization - C w/wo LV & Coros(Left) - Tammy Hardy MD PATIENT REASSESSED PRIOR TO SEDATION, WITH NO CHANGE NOTED: Yes PHYSICAL EXAM: alert, oriented x 3, clear to auscultation bilaterally, regular rate & rhythm and operative site marked AIRWAY EVAL/ANESTHESIA PLAN: ASA II, Risks, benefits & alternatives of sedation and/or procedure discussed and Patient agrees to continue as planned ADDITIONAL INFORMATION: All risk-benefit and alternative for the procedure has been explained to the patient. Patient understand 2% risk of stroke major bleed, patient understand 5 to 6% risk of minor bleeding bruising infection hematoma vascular injury urgent emergent vascular or bypass surgery contrast induced nephropathy. Pseudoaneurysm. Patient would like to proceed with it.
== END 2024-07-14 16:45 | disposition home or self-care (01) ==
LOC: CCL 07:15 → CSU 11:29
PROVIDERS: PCP Family Medicine; Visit Provider Internal Medicine Cardiovascular Disease
DX: I25.10 Atherosclerotic heart disease of native coronary artery without angina pectoris (principal); I35.0 Nonrheumatic aortic (valve) stenosis; I10 Essential (primary) hypertension; Z87.891 Personal history of nicotine dependence; R01.1 Cardiac murmur, unspecified; Z82.49 Family history of ischemic heart disease and other diseases of the circulatory system
CPT/HCPCS: 36415; 80048; 85025; 93458; 96374; 99152; 99153; C1769; C1887; C1894; J1644; J2250; J3010; J3490; J7030; J9999; Q0163; Q9967

== ENCOUNTER → 2024-07-28 13:45 | Outpatient (BNVA) | payer MEDICARE, OTHER, SELFPAY | PROVIDERS: PCP Family Medicine; Visit Provider Nurse Practitioner Family | DX: Z09 Encounter for follow-up examination after completed treatment for conditions other than malignant neoplasm (principal); I35.0 Nonrheumatic aortic (valve) stenosis | CPT/HCPCS: 36415; 80048; 99214 ==

== ENCOUNTER → 2024-09-15 08:03 | Outpatient (BNVA) | payer MEDICARE, OTHER, SELFPAY | PROVIDERS: PCP Family Medicine; Visit Provider Podiatrist Foot & Ankle Surgery | DX: L84 Corns and callosities (principal); Q82.8 Other specified congenital malformations of skin; M20.41 Other hammer toe(s) (acquired), right foot; M20.42 Other hammer toe(s) (acquired), left foot | CPT/HCPCS: 99213 ==

== ENCOUNTER → 2024-11-19 15:19 | Outpatient (BNVA) | payer MEDICARE, OTHER, SELFPAY | PROVIDERS: PCP Family Medicine; Visit Provider Internal Medicine Cardiovascular Disease | DX: I25.10 Atherosclerotic heart disease of native coronary artery without angina pectoris (principal); I10 Essential (primary) hypertension; I35.0 Nonrheumatic aortic (valve) stenosis; Z95.2 Presence of prosthetic heart valve; Z87.891 Personal history of nicotine dependence | CPT/HCPCS: 99214 ==

== ENCOUNTER 2024-11-29 11:40 | Emergency (ER) | payer MEDICARE, OTHER, SELFPAY ==
--- OUTSIDE RECORDS SUMMARY | 2018-04-09 05:00 | XMS_ITS | Continuity of Care Document ---
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 Name Role Phone River KHAN, OTR/L, Sade ADDISON Unavailable Un available Procedures Procedure Date Progress Note Therapeutic Exercise Therapeutic Activities Manual Therapy Hot or Cold Pack Electrical Stimulation Ultrasound Therapeutic Exercise Therapeutic Activities Hot or Cold Pack Electrical Stimulation Theraputty Progress Note Therapeutic Exercise Therapeutic Activities Hot or Cold Pack Electrical Stimulation Therapeutic Exercise Therapeutic Activities Hot or Cold Pack Electrical Stimulation Therapeutic Exercise Therapeutic Activities Hot or Cold Pack OT Evaluation Low Complexity Therapeutic Exercise Hot or Cold Pack THERAPEUTIC EXERCISES MANUAL THERAPY PT EVALUATION THERAPEUTIC EXERCISES MANUAL THERAPY Advance Directives Directive Yes / No Effective Date File Name No Information Encounters Encounter Description Practice Location Reason(s) For Visit Diagnoses Date Provider Providers Copied on Encounter [facility], [address], [place], [place], [id number], [place] tel:[phone] [facility] Sprain of metacarpophalangeal joint of left thumb, subsSprain of interphalangeal joint of left thumb, subs encntrStiffness of unspecified hand, not elsewhere classifiedOth symptoms and signs involving the musculoskeletal system Apr-0 2201 9 [address] Sade. [address] [facility], [address], [place], [address], [place]. tel:[phone] Referring Provider: Yobani Arrieta, [address], [place], [address]. tel:[phone] [facility], [address] [place], [place] [address], [place], [place], [id number], [place] tel:[phone] [facility] Sprain of metacarpophalangeal joint of left thumb, subsSprain of interphalangeal joint of left thumb, subs encntrStiffness of unspecified hand, not elsewhere classifiedOth symptoms and signs involving the musculoskeletal system Mar- 8201 8 [address]ade. [address] [facility], [address], [place], [address], [place]. tel:[phone] Referring Provider: [address], [place], [address]. tel:[phone] [facility], [address], [place], [place], [id number], [place] tel:[phone] [facility] Sprain of metacarpophalangeal joint of left thumb, subsSprain of interphalangeal joint of left thumb, subs encntrStiffness of unspecified hand, not elsewhere classifiedOth symptoms and signs involving the musculoskeletal system Mar- 6201 8 [address] Sade. [address] [facility], [address], [place], [address], [place]. tel:[phone] Referring Provider: Juan Prieto[address], [place], [address]. tel:[phone] [facility], [place], [place], [address], [place] tel:[phone] [facility] Sprain of metacarpophalangeal joint of left thumb, subsSprain of interphalangeal joint of left thumb, subs encntrStiffness of unspecified hand, not elsewhere classifiedOth symptoms and signs involving the musculoskeletal system Dec-1 8 [address] Sade. [address] [facility], [address], [place], [address], [place]. tel:[phone] Referring Provider: Yobani Arrieta, [address], [place], [address]. tel:[phone] [facility], [address] [place], [place] [address], [place], [place], [id number], [place] tel:[phone] [facility] Sprain of metacarpophalangeal joint of left thumb, subsSprain of interphalangeal joint of left thumb, subs encntrStiffness of unspecified hand, not elsewhere classifiedOth symptoms and signs involving the musculoskeletal system Dec-0 8 Hai Grajeda. [address] [place] [address], [address], [place], [address], [place]. tel:[phone] Referring Provider: Yobani Arrieta, Juan[address], [place], [address]. tel:[phone] [facility], [address], [place], [place], [id number], [place] tel:[phone] [facility] Sprain of metacarpophalangeal joint of left thumb, subsSprain of interphalangeal joint of left thumb, subs encntrStiffness of unspecified hand, not elsewhere classifiedOth symptoms and signs involving the musculoskeletal system Dec-0 8 [address] Sade. [address] [facility], [address], [place], [address], [place]. tel:[phone] Referring Provider: Yobani Arrieta, [address], [place], [address]. tel:[phone] [facility], [address], [place], [place], [address], [place] tel:[phone] [facility] No Information Feb0 6201 5 Zayrashirin Damon. [address] [facility], [address], [place], [address], [place]. tel:[phone] Referring Provider: Joqauin Saravia, [address], [place], [address]. tel:[phone] [facility], [address], [id number], tel:[phone] [facility] Pain in joint involving pelvic region and thigh Feb0 3201 5 Zayra aDmon. [address] [facility], [address], [place], [address], [place]. tel:[phone] Referring Provider: Joaquin Saravia, [address], [place], [address]. tel:[phone] Family History Family Member Type Diagnosis Age At Onset No Information Payers Payer name Insurance type Covered democrat ID Authoriza tion(s) No Information Social History Type Description Quantity Date Captured Comments Sex Female Smoking Status No Information Chief Complaint And Reason For Visit No Information Reason For Referral Reason For Referral No Information History Of Present Illness Encounter Date Complaint History Of Prese nt Illness No Information Functional Status Date Functional Assessmen t No Information Instructions Date Instruction Additional Infor mation No Information Assessments Type Assessment Date No Information Patient Care Teams Name Effective Dates (start - stop) Status Members No Information
--- OUTSIDE RECORDS SUMMARY | 2023-10-17 05:34 | XMS_ITS | Continuity of Care Document ---
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 Patient Care Teams Name Effective Dates (start - stop) Status Members No Information
[2024-11-29 11:44] VITALS: BP 196/105; PULSE 80; RESP 16; TEMP 36.6; O2SAT 95; BMI 21.8
--- OUTSIDE RECORDS SUMMARY | 2024-11-29 11:47 | XMS_ITS | Encounter Summary ---
Author Organization [facility] Address [address] [place] [address] Care Team Providers Care Cook Fishing Vessel Name Role Phone Musa Prasad MD Primary Care Provider [phone] Encounter Details Date Type Department Care Team (Late st Contact Info) Description 11/25/2024 External Device Data [facility] ABSTRACTION Provider, Abstract NO ADDRESS ON FILE Social History Tobacco Use Types Packs/Day Years Used Date Smoking Tobacco: Former Cigarettes Smokeless Tobacco: Never Alcohol Use Standard Drinks/Week Comments Never 0 (1 standard drink = 0.6 oz pur e alcohol) Comments Unknown Sex and Gender Information Value Date Recorded Sex Assigned at Not on file 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 Gender Identity Not on file Sexual Orientation Not on file documented as of this encounter Plan of Treatment Upcoming Encounters Date Type Department Care Team (Late st Contact Info) Description 07/22/2025 1:45 PM CDT Office Visit [facility] [address] [place] [id number] documented as of this encounter Visit Diagnoses Not on filedocumented in this encounter Care Teams Cook Fishing Vessel Relationship Specialty Start Date End Date Musa Prasad MD [address] [phone] PCP - General Family Practice 06/29/24 documented as of this encounter
--- OUTSIDE RECORDS SUMMARY | 2024-11-29 11:47 | XMS_ITS | Clinical Summary ---
Author Organization [facility] Address [address] [place] [address] Phone Care Team Providers Care Education Program Coordinator Name Role Phone Musa Prasad MD Primary Care Provider [phone] Allergies Active Allergy Reactions Criticality Noted Date Comments Levofloxacin Shortness of Breath/Wheezing High 11/15 Levaquin Medications amLODIPine (NORVASC) 10 mg tablet 5 Active clobetasoL (TEMOVATE) 0.05 % Ointment APPLY 1 GRAM TOPICALLY TWICE DAILY TO RASH ON LOWER LEGS FOR 2 WEEKS, THEN NEEDED. USE FOR NO MORE THAN 2 WEEKS PER MONTH 5 Active ferrous gluconate 324 mg (38 mg iron) tablet take 1 tablet by mouth once daily with meals 5 Active fluticasone propionate (FLONASE) 50 mcg/spray Wilcox, Suspension nasal inhaler Active aspirin 81 mg Capsule Take by mouth. Activ e ergocalciferol, vitamin D2, (VITAMIN D ORAL) Take by mouth. Activ e Active Problems No known active problems Encounters Date Type Department Care Team Description 11/25/2024 External Device Data STL ABSTRACTION Provider, Abstract 10/21/2024 External Device Data [facility] ABSTRACTION Provider, Abstract 10/21/2024 External Device Data [facility] ABSTRACTION Provider, Abstract 10/21/2024 External Device Data ST[facility] ABSTRACTION Provider, Abstract 09/23/2024 External Device Data ST[facility] ABSTRACTION Provider, Abstract 09/22/2024 External Device Data [facility] ABSTRACTION Provider, Abstract from Last 3 Months Social History Tobacco Use Types Packs/Day Years Used Date Smoking Tobacco: Former Cigarettes Smokeless Tobacco: Never Tobacco Cessation:Counseling Given: Not Answered Alcohol Use Standard Drinks/Week Comments Never 0 (1 standard drink = 0.6 oz pur e alcohol) Comments Unknown Sex and Gender Information Value Date Recorded Sex Assigned at Not on file 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 Gender Identity Not on file Sexual Orientation Not on file Last Filed Vital Signs Vital Sign Reading Time Taken Comments Blood Pressure 146/84 07/16/2024 11:23 AM CDT Pulse 72 07/16/2024 11:23 AM CDT Temperature - - Respiratory Rate - - Oxygen Saturation - - Inhaled Oxygen Concentration - - Weight 68.2 kg (150 lb 6.4 oz) 07/16/2024 11:23 AM CDT Height 160 cm (5' 3 ) 07/16/2024 11:23 AM CDT Body Mass Index 26.64 07/16/2024 11:23 AM CDT Plan of Treatment Upcoming Encounters Date Type Department Care Team (Late st Contact Info) Description 07/22/2025 1:45 PM CDT Office Visit [facility] [address] [facility] [address] [place] [address] Health Maintenance Due Date Last Done Comments DTAP/TDAP/TD VACCINES (1 - Tdap) 1964 PNEUMOCOCCAL VACCINE 50+ YEARS (1 of 1 - PCV) 08/01/18 96 ZOSTER VACCINE (1 of 2) 08/02/1995 OSTEOPOROSIS SCREENING 2010 RSV VACCINE (60+ or ) (1 - 1-dose 75+ series) 2020 INFLUENZA VACCINE (#1) [address] [place] [address] MEDICARE PART A AND B [facility] SUPP Care Teams Education Program Coordinator Relationship Specialty Start Date End Date Musa Prasad MD [address] [phone] PCP - General Family Practice 06/29/24
--- NOTE | 2024-11-29 11:52 | PC.NURSE ---
Addendum entered by Blaire Mcclendon RN 11/29/24 11:53: PHYSICIAN, DR IRBY. Original Note: PHYSICIAN PRESENT AT BEDSIDE AND DENIED NEED FOR STROKE ALERT.
--- NOTE | 2024-11-29 11:53 | CTR_ITS ---
PROCEDURE INFORMATION: Exam: CTA Head With Contrast, Arteriography Exam date and time: 11/29/2024 12:33 PM Age: 79 years old Clinical indication: Pain; Headache; Additional info: Severe base of skull headache associated with hypertension, TECHNIQUE: Imaging protocol: Computed tomographic angiography of the head with contrast. Exam focused on the arteries. 3D rendering (Not supervised by radiologist): MIP and/or 3D reconstructed images were created by the technologist. Radiation optimization: All CT scans at this facility use at least one of these dose optimization techniques: automated exposure control; mA and/or kV adjustment per patient size (includes targeted exams where dose is matched to clinical indication); or iterative reconstruction. Contrast material: OMNIPAQUE 350; Contrast volume: 100 ml; Contrast route: INTRAVENOUS (IV); COMPARISON: CT angio headneck* [id number] 06/10/2020 9:39 PM RADIATION DOSE METRICS: Total DLP (mGy-cm): 377.7 FINDINGS: ANTERIOR CIRCULATION: Right internal carotid artery: Intracranial segment is patent with no significant stenosis. No aneurysm. Right middle cerebral artery: No occlusion or significant stenosis. No aneurysm. Right anterior cerebral artery: No occlusion or significant stenosis. No aneurysm. Left internal carotid artery: Intracranial segment is patent with no significant stenosis. No aneurysm. Left middle cerebral artery: No occlusion or significant stenosis. No aneurysm. Left anterior cerebral artery: No occlusion or significant stenosis. No aneurysm. POSTERIOR CIRCULATION: Right vertebral artery: No occlusion or significant stenosis. No aneurysm. Left vertebral artery: No occlusion or significant stenosis. No aneurysm. Basilar artery: No occlusion or significant stenosis. No aneurysm. Right posterior cerebral artery: No occlusion or significant stenosis. No aneurysm. Left posterior cerebral artery: No occlusion or significant stenosis. No aneurysm. Brain: No definite mass, mass effect, or midline shift. Cerebral ventricles: No ventriculomegaly. Bones/joints: Unremarkable. No acute fracture. Soft tissues: Unremarkable. PROCEDURE INFORMATION: Exam: CTA Neck With Contrast Exam date and time: 11/29/2024 12:33 PM Age: 79 years old Clinical indication: Pain; Headache; Additional info: Severe base of skull headache associated with hypertension, TECHNIQUE: Imaging protocol: Computed tomographic angiography of the neck with contrast. Exam focused on the cervical segments of the vasculature. 3D rendering (Not supervised by radiologist): MIP and/or 3D reconstructed images were created by the technologist. Radiation optimization: All CT scans at this facility use at least one of these dose optimization techniques: automated exposure control; mA and/or kV adjustment per patient size (includes targeted exams where dose is matched to clinical indication); or iterative reconstruction. Contrast material: OMNIPAQUE 350; Contrast volume: 100 ml; Contrast route: INTRAVENOUS (IV); COMPARISON: CT angio headneck* [id number] 06/10/2020 9:39 PM RADIATION DOSE METRICS: Total DLP (mGy-cm): 377.7 FINDINGS: Right common carotid artery: No stenosis. No dissection or occlusion. Right internal carotid artery: No stenosis of the extracranial segment. No dissection or occlusion. Right external carotid artery: No occlusion or stenosis of the origin. Left common carotid artery: No stenosis. No dissection or occlusion. Left internal carotid artery: No stenosis of the extracranial segment. No dissection or occlusion. Left external carotid artery: No occlusion or stenosis of the origin. Right vertebral artery: No stenosis. No dissection or occlusion. Left vertebral artery: No stenosis. No dissection or occlusion. Soft tissues: Normal. No significant soft tissue swelling. Bones/joints: No acute fracture. CT/CT angio headne* [id number] IMPRESSION: No large vessel stenosis or occlusion. IMPRESSION: No stenosis or occlusion. REFERENCES: NASCET CRITERIA. The degree of stenosis in the cervical segment of the internal carotid artery is based on NASCET criteria. Normal is no stenosis. Mild is less than 50% stenosis. Moderate is 50-69% stenosis. Severe is 70% to 99% stenosis. Total occlusion is no detectable patent lumen.
--- NOTE | 2024-11-29 11:53 | CTR_ITS ---
PROCEDURE INFORMATION: Exam: CT Head Without Contrast Exam date and time: 11/29/2024 12:33 PM Age: 79 years old Clinical indication: Pain; Headache; Additional info: Severe base of skull headache associated with hypertension, TECHNIQUE: Imaging protocol: Computed tomography of the head without contrast. Radiation optimization: All CT scans at this facility use at least one of these dose optimization techniques: automated exposure control; mA and/or kV adjustment per patient size (includes targeted exams where dose is matched to clinical indication); or iterative reconstruction. COMPARISON: CT head wo con* [id number] 06/21/2024 11:38 PM RADIATION DOSE METRICS: Total DLP (mGy-cm): 1161.2 FINDINGS: Brain: No hemorrhage. Periventricular white matter lucency represents atherosclerotic encephalopathic changes. No mass effect. Cerebral ventricles: No ventriculomegaly. Paranasal sinuses: Visualized sinuses are unremarkable. No fluid levels. Mastoid air cells: Visualized mastoid air cells are well aerated. Bones: Unremarkable. No acute fracture. Soft tissues: Unremarkable. CT/CT head wo con* [id number] IMPRESSION: No acute intracranial abnormality.
--- NOTE | 2024-11-29 11:59 | ECG_ITS ---
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 Measurements Intervals Dawes Rate: 61 P: 39 AL: 203 QRS: 20 QRSD: 78 T: 49 QT: 418 QTc: 422 Interpretive Statements SINUS RHYTHM MODERATE ST DEPRESSION [0.05+ mV ST DEPRESSION] Compared to ECG 06/22/2024 15:08:48 No significant changes Electronically Signed On 11-29-2024 18:45:46 CDT by Vega Marroquin M.D. [email or web address]
--- NOTE | 2024-11-29 11:59 | W.ED.DIZZY ---
HPI - Dizziness General: Chief Complaint: Dizziness Stated Complaint: head pressure / dizzy Time Seen by Provider: 11/29/24 11:42 History of Present Illness: HPI Narrative: HPI: Patient had sudden onset lightheadedness and weakness (not scribes vertigo) while in [employer]. She felt like she needed to remain seated at [employer] and could not sit up because she may pass out. States that sudden onset base of skull headache at the same time. No fevers, sweats, chills, chest pain, or shortness of breath. Presents with who states that this happens on occasion a few times a month, once or twice but never to the point where the patient feels as though she may pass out. Headache is described as searing pain in the base of her skull does not radiate elsewhere bitemporally or into her chest or dominant arms. No associated nausea, vomiting, or diaphoresis. REVIEW OF SYSTEMS: 10 systems reviewed and otherwise unremarkable except for those noted in HPI. PHYSCIAL EXAM: Triage vital signs reviewed Gen: A&O NAD, elderly HEENT: NCAT, EOMI, not icteric. External ears normal. No rhinorrhea. Moist mucous membranes. Neck: Supple, full range of motion, no observable masses, No meningeal sign. Lungs: No Respiratory distress. CV: RRR, no edema. Abdomen: Soft, nondistended, No rebound tenderness. MSK: No joint swelling, no redness. Skin: No rashes, petechiae, lesions. Normal color per patient. Neuro: Cranial nerves II, III, IV, and 6 intact bilaterally, visual leahy normal to confrontation in all quadrants, pupils equal and reactive to light and accommodation. Extraocular movements intact without nystagmus. Facial sensation intact bilaterally. Facial muscle strength is symmetrical. Hearing is normal bilaterally. Voice is normal. Moving shoulders bilaterally. Biceps, triceps, quadriceps, and hamstrings equal and strong bilaterally 5/5 Sensation and strength intact in upper and lower extremities. Negative Romberg, rapid movements normal gait steady without abnormality. Psych: Appropriate for situation. PROCEDURES: EKG: Rate: Normal Rhythm: Sinus [place]: Normal variant Intervals: Normal Ischemia: No STEMI criteria Related Data Home Medications ?Medication ?Instructions ?Recorded ?Confirmed B-complex with vitamin C 1 cap PO DAILY 07/15/19 11/29/24 amlodipine 10 mg tablet 10 mg PO DAILY@0800 07/15/19 11/29/24 ferrous sulfate 325 mg (65 mg 325 mg PO DAILY 07/14/24 11/29/24 iron) tablet (Iron (ferrous sulfate)) clobetasol 0.05 % topical ointment See Rx Instructions .Route .COMPLEX 11/29/24 11/29/24 fluorouracil 5 % topical cream 1 applic topical DAILY PRN dry 11/29/24 11/29/24 (Efudex) spots/rash Allergies Allergy/AdvReac Type Severity Reaction Status Date / Time hydrocodone (From Panlor Allergy Unknown Unknown Verified 09/15/24 08:10 (hydrocodone-acetamin)) levofloxacin (From Levaquin) AdvReac ADR-Muscle Verified 09/15/24 08:10 Pain PFSH ED PFSH: Medical History (Updated 11/29/24 @ 13:10 by Stefano Tariq MD) Hypertension Osteoarthritis Aortic valve sclerosis HTN (hypertension) with goal to be determined Tarsal tunnel syndrome Hyponatremia History of cystocele REPAIRED WITH RECTOCELE Murmur Recurrent UTI Surgical History S/P augmentation mammoplasty Hx of hysterectomy with oophorectomy Hx of foot surgery History of total knee arthroplasty BILATERAL History of repair of rectocele History of Achilles tendon repair Family History Mother CAD (coronary artery disease) Father CAD (coronary artery disease) Social History Smoking and tobacco/nicotine status: former use of tobacco/nicotine (quit 1968) Alcohol intake: never Substance/Drug Use: never Adopted: No Caregiver/support person: No Lives independently: No Household members: spouse Marital status: Current occupational status: retired Current gender identity: Female Course Vital Signs: Vital signs: Vital Signs Temperature 97.9 F 11/29/24 11:44 Pulse Rate 64 11/29/24 13:23 Respiratory Rate 16 11/29/24 11:44 Blood Pressure 156/82 11/29/24 13:23 Pulse Oximetry 97 11/29/24 13:23 Oxygen Delivery Me thod Room Air 11/29/24 13:23 MDM - Dizziness Medical Decision Making MEDICAL DECISION MAKING: Differential diagnoses considered but not limited to: Intracranial hemorrhage, vascular catastrophe including dissection or occlusion, vascular steal syndrome, referred ACS, electrolyte derangement, dehydration/orthostasis, intermittent dysrhythmia. Vitals nonactionable. Given history, examination, and pretest risk factors, obtain cardiac rule out as well as CT CTA of the head and neck. Pending return of the studies. Initial EKG nonischemic. Repeat blood pressure check demonstrates 140 systolic as opposed to 190 systolic on initial triage vital signs. Continue to monitor the patient. CT/CTA negative. Vital signs nonemergent nonactionable and patient with comfortable appearance of the department. Advised of all findings and negative workup in department today. Patient is headache free at time of discharge. DISPO: ARNALDO Tariq MD Staff physician[place] [facility] [place] [phone] Lab Data 11/29/24 12:01 11/29/24 12:[address] 11/29/24 11:53 IMPRESSION: No acute intracranial abnormality. Head/Neck CTA 11/29/24 11:53 IMPRESSION: No large vessel stenosis or occlusion. IMPRESSION: No stenosis or occlusion. REFERENCES: NASCET CRITERIA. The degree of stenosis in the cervical segment of the internal carotid artery is based on NASCET criteria. Normal is no stenosis. Mild is less than 50% stenosis. Moderate is 50-69% stenosis. Severe is 70% to 99% stenosis. Total occlusion is no detectable patent lumen. Laboratory Results WBC 8.25 10^3/uL (3.29-11.43) 11/29/24 12:01 RBC 5.03 10^6/uL (3.85-5.65) 11/29/24 12:01 Hgb 14.40 g/dL (11.27-16.99) 11/29/24 12:01 Hct 44.2 % (36-47) 11/29/24 12:01 MCV 87.9 fl (85-98) 11/29/24 12:01 MCH 28.6 pg (27-33) 11/29/24 12:01 MCHC 32.6 g/dL (30-55) 11/29/24 12:01 RDW 12.9 % (12.1-15.1) 11/29/24 12:01 Plt Count 438 10^3/cmm (157-399) H 11/29/24 12:01 MPV 9.0 fL (7.4-10.4) 11/29/24 12:01 Neut % (Auto) 68.6 % 11/29/24 12:01 Lymph % (Auto) 20.6 % 11/29/24 12:01 [place] % (Auto) 8.6 % 11/29/24 12:01 Eos % (Auto) 1.3 % 11/29/24 12:01 Baso % (Auto) 0.7 % 11/29/24 12:01 Neut # (Auto) 5.65 10^3/uL (1.8-7.7) 11/29/24 12:01 Lymph # (Auto) 1.7 10^3/uL (0.8-4.8) 11/29/24 12:01 [place] # (Auto) 0.7 10^3/uL (0.2-0.9) 11/29/24 12:01 Eos # (Auto) 0.1 10^3/uL (0.0-0.8) 11/29/24 12:01 Baso # (Auto) 0.1 10^3/uL (0.0-0.1) 11/29/24 12:01 Nucleated RBC % (auto) 0 % 11/29/24 12:01 Nucleated RBCs # 0.0 /100WBC 11/29/24 12:01 Sodium 137 mmol/L (136-145) 11/29/24 12:01 Potassium 3.9 mmol/L (3.5-5.1) 11/29/24 12:01 Chloride 101 mmol/L (98-107) 11/29/24 12:01 Carbon Dioxide 25 mmol/L (22-29) 11/29/24 12:01 Anion Gap 14.9 (5-19) 11/29/24 12:01 BUN 7 mg/dL (8-23) L 11/29/24 12:01 Creatinine 0.6 mg/dL (0.5-0.9) 11/29/24 12:01 GFR Calculation Not Reportable 11/29/24 12:01 Glucose 98 mg/dL (65-115) 11/29/24 12:01 Calculated Osmolality 282 mOsm/kg (285-295) L 11/29/24 12:01 Calcium 9.7 mg/dL (8.5-10.5) 11/29/24 12:01 Total Bilirubin 0.4 mg/dL (0.15-1.2) 11/29/24 12:01 AST 20 U/L (0-32) 11/29/24 12:01 ALT 14 U/L (0-33) 11/29/24 12:01 Alkaline Phosphatase 159 U/L (35-105) H 11/29/24 12:01 Troponin T Baseline 10 ng/L (0-10) 11/29/24 12:01 Troponin T 120 Minute 9.78 ng/L (0-10) 11/29/24 14:00 Delta Troponin T -0.22 ABS# (0-10) L 11/29/24 14:00 Total Protein 6.7 g/dL (6.6-8.7) 11/29/24 12:01 Albumin 4.3 g/dL (3.5-5.2) 11/29/24 12:01 Globulin 2.4 g/dL (1.3-4.6) 11/29/24 12:01 Urine Color Yellow (Yellow) 11/29/24 13:18 Urine Appearance Clear (CLEAR) 11/29/24 13:18 Urine pH 8.0 (5-7) A 11/29/24 13:18 Ur Specific [place] 1.020 (1.005-1.030) 11/29/24 13:18 Urine Protein Negative (Negative) 11/29/24 13:18 Urine Glucose (UA) Negative (Normal) 11/29/24 13:18 Urine Ketones Negative (Negative) 11/29/24 13:18 Urine Blood Negative (Negative) 11/29/24 13:18 Urine Nitrate Negative (Negative) 11/29/24 13:18 Urine Bilirubin Negative (Negative) 11/29/24 13:18 Urine Urobilinogen 0.2 mg/dL (Negative) 11/29/24 13:18 Ur Leukocyte Esterase Negative (Negative) 11/29/24 13:18 Urine RBC 0-2 /hpf (0-2) 11/29/24 13:18 Urine WBC 0-5 /hpf (0-5) 11/29/24 13:18 Ur Squamous Epith Cells 0-5 /hpf (0-5) 11/29/24 13:18 Amorphous Sediment Not Reportable 11/29/24 13:18 Urine Bacteria None seen /hpf (NONE) 11/29/24 13:18 Hyaline Casts 0-4 /lpf H 11/29/24 13:18 All radiology interpretation(s) finalized by discharge Discharge Plan Discharge Patient Disposition: Home Clinical Impression: Episodic lightheadedness, Alkaline phosphatase elevation Headache Qualifiers: Headache type: unspecified Headache chronicity pattern: acute headache Intractability: intractable Qualified Code(s): R51.9 - Headache, unspecified Condition: Stable Prescriptions: No Action amlodipine 10 mg tablet 10 mg PO DAILY@0800 B-complex with vitamin C Capsule 1 cap PO DAILY ferrous sulfate [Iron (ferrous sulfate)] 325 mg (65 mg iron) Tablet 325 mg PO DAILY clobetasol 0.05 % ointment See Rx Instructions .ROUTE .COMPLEX Rx Instructions: APPLY 1 GRAM TOPICALLY TWICE DAILY TO RASH ON LOWER LEGS FOR 2 WEEKS, THEN NEEDED. USE FOR NO MORE THAN 2 WEEKS PER MONTH. fluorouracil [Efudex] 5 % cream 1 applic topical DAILY PRN (Reason: dry spots/rash) Discharge Orders: Discharge ED (Routine); Ordered 11/29/24 Ordered By: Stefano Tariq Referrals: Musa Prasad MD [Primary Care Provider, Family Practice] Discharge Diet: Advance as tolerated Discharge Activity: Resume usual activity Patient Instructions: Acute Headache (DC), Opioid Safety, Pain Management, Patient Portal & Ania Instructions Activity Restrictions/Additional Instructions: It has been a pleasure caring for you in the emergency department. Please ensure that you follow-up with your primary care physician for review of all data obtained during this encounter including any incidental findings and laboratory values. Keep in mind that if your condition worsens in any way, I strongly recommend that you return to the emergency department for repeat evaluation immediately. Print Language: Ethiopian Coding Level of Care Code ED Shift Supervisor for Maninder Gracia
[2024-11-29 12:06] LABS: Hematocrit 44.2 % (36-47); Hemoglobin 14.40 g/dL (11.27-16.99); Mean Corpuscular HGB Conc 32.6 g/dL (30-55); Mean Corpuscular Hemoglobin 28.6 pg (27-33); Mean Corpuscular Volume 87.9 fl (85-98); Nucleated Red Blood Cells % 0 %; Platelet Count 438 10^3/cmm (157-399); Red Blood Count 5.03 10^6/uL (3.85-5.65); White Blood Count 8.25 10^3/uL (3.29-11.43)
[2024-11-29 12:16] VITALS: BP 149/77; PULSE 63; O2SAT 93
--- NOTE | 2024-11-29 12:20 | PC.NURSE ---
RECHECKED PATIENT BP PRIOR TO ADMIN OF HYDRALAZINE, 149/77. REPORTED TO DR. IRBY AND REQUESTED TO HOLD HYDRALAZINE.
[2024-11-29 12:23] LABS: Troponin(5th) Baseline 10 ng/L (0-10)
[2024-11-29 12:27] LABS: Alanine Aminotransferase 14 U/L (0-33); Albumin Level 4.3 g/dL (3.5-5.2); Alkaline Phosphatase 159 U/L (35-105); Aspartate Amino Transferase 20 U/L (0-32); Blood Urea Nitrogen 7 mg/dL (8-23); Calcium 9.7 mg/dL (8.5-10.5); Carbon Dioxide 25 mmol/L (22-29); Chloride 101 mmol/L (98-107); Creatinine Clr Calc Pharmacy 54.1260; Globulin 2.4 g/dL (1.3-4.6); Glucose 98 mg/dL (65-115); Osmolality Calculated 282 mOsm/kg (285-295); Sodium 137 mmol/L (136-145); Total Protein 6.7 g/dL (6.6-8.7)
[2024-11-29 12:35] LABS: Anion Gap 14.9 (5-19); Potassium 3.9 mmol/L (3.5-5.1)
[2024-11-29] MEDS: iohexol 350 mg/mL 500 mL Btl (per mL) IV (12:41)
[2024-11-29 13:23] VITALS: BP 156/82; PULSE 64; O2SAT 97
[2024-11-29 13:28] LABS: Glucose Urine UA Negative (Normal); Nitrate Urine Negative (Negative); Specific Gravity, Urine 1.020 (1.005-1.030)
[2024-11-29 13:32] LABS: Add Urine Microscopic? YES
[2024-11-29 14:25] LABS: Troponin 5 2HR 9.78 ng/L (0-10); Troponin 5 2HR Delta -0.22 ABS# (0-10)
[2024-11-29 15:22] VITALS: BP 143/88; PULSE 63; RESP 16; O2SAT 92
== END 2024-11-29 15:28 | disposition home or self-care (01) ==
PROVIDERS: Emergency Provider General Practice; PCP Family Medicine
DX: R42 Dizziness and giddiness (principal); R74.8 Abnormal levels of other serum enzymes; R51.9 Headache, unspecified; Z87.891 Personal history of nicotine dependence; I10 Essential (primary) hypertension
CPT/HCPCS: 70450; 70496; 70498; 80053; 81001; 84484; 85025; 93005; 99285

== ENCOUNTER → 2024-12-15 08:44 | Outpatient (BNVA) | payer MEDICARE, OTHER, SELFPAY | PROVIDERS: PCP Family Medicine; Visit Provider Podiatrist Foot & Ankle Surgery | DX: L84 Corns and callosities (principal); Q82.8 Other specified congenital malformations of skin; M20.41 Other hammer toe(s) (acquired), right foot; M20.42 Other hammer toe(s) (acquired), left foot | CPT/HCPCS: 99213 ==

== ENCOUNTER → 2024-12-21 08:05 | Outpatient (BNVA) | payer MEDICARE, OTHER, SELFPAY | PROVIDERS: PCP Family Medicine; Visit Provider Dermatology | DX: L82.1 Other seborrheic keratosis (principal); L40.8 Other psoriasis; L57.8 Other skin changes due to chronic exposure to nonionizing radiation; L81.4 Other melanin hyperpigmentation; D18.01 Hemangioma of skin and subcutaneous tissue; Z08 Encounter for follow-up examination after completed treatment for malignant neoplasm; Z85.828 Personal history of other malignant neoplasm of skin; L82.0 Inflamed seborrheic keratosis; L53.8 Other specified erythematous conditions; L29.89 Other pruritus; R20.8 Other disturbances of skin sensation; D48.5 Neoplasm of uncertain behavior of skin | CPT/HCPCS: 11102; 17000; 17110; 99214 ==

== ENCOUNTER → 2025-02-11 15:24 | Outpatient (BNVA) | payer MEDICARE, OTHER, SELFPAY | PROVIDERS: PCP Family Medicine; Visit Provider Internal Medicine Cardiovascular Disease | DX: I35.0 Nonrheumatic aortic (valve) stenosis (principal); Z87.891 Personal history of nicotine dependence | CPT/HCPCS: 99213 ==

== ENCOUNTER → 2025-02-17 08:10 | Outpatient (BNVA) | payer MEDICARE, OTHER, SELFPAY | PROVIDERS: PCP Family Medicine; Visit Provider Podiatrist Foot & Ankle Surgery | DX: M21.6X2 Other acquired deformities of left foot (principal); M21.6X1 Other acquired deformities of right foot; L84 Corns and callosities; Q82.8 Other specified congenital malformations of skin; M20.41 Other hammer toe(s) (acquired), right foot; M20.42 Other hammer toe(s) (acquired), left foot | CPT/HCPCS: 99213 ==

== ENCOUNTER 2025-03-01 11:35 | Outpatient (CLI) | payer MEDICARE, OTHER, SELFPAY ==
--- NOTE | 2025-03-01 12:00 | USCV_ITS ---
Sierra Pearce Age: 79 Gender: F : 1945 Exam Date: 03/01/2025 12:10 Ordering Phys: Tammy Hardy MD ([email or web address]) Technologist: Exam Location: [facility] – [place] Indication: as BP: 129 / 70 HR: 67 Rhythm: Sinus Technical Quality: Adequate MEASUREMENTS (Male / Female) Normal Values 2D ECHO LV Diastolic Diameter PLAX 3.2 cm 4.2 - 5.9 / 3.9 - 5.3 cm IVS Diastolic Thickness 1.4 cm 0.6 - 1.0 / 0.6 - 0.9 cm IVS Systolic Thickness 2.0 cm LVPW Diastolic Thickness 1.5 cm 0.6 - 1.0 / 0.6 - 0.9 cm LVPW Systolic Thickness 1.9 cm LVOT Diameter 2.0 cm LV Ejection Fraction 2D Teich 24.3 % LV Ejection Fraction MOD 4C 69.1 % LV Ejection Fraction MOD 2C 66.0 % LV Ejection Fraction 2C AL 67.2 % LA Diameter 3.9 cm RA Systolic Volume 4C AL 40.8 ml RA Systolic Volume 4C MOD 36.8 ml LA Sys Volume AL 42.3 cm cubed LA Sys Volume Index AL 24.7 cm cubed/m squared Aorta at Sinotubular Diameter 2.6 cm M-MODE LA Ao Ratio MM 1.1 AV Cusp Separation MM 1.1 cm DOPPLER AV Peak Velocity 419.3 cm/s LVOT Peak Velocity 73.0 cm/s AV Area Cont Eq vti 0.7 cm squared AV Area Cont Eq pk 0.6 cm squared MV Peak Velocity 117.0 cm/s MV Area PHT 3.7 cm squared Mitral E to A Ratio 0.5 TR Peak Velocity 186.0 cm/s TR Peak Gradient 13.8 mmHg TV Peak E Velocity 55.0 cm/s PV Peak Velocity 104.0 cm/s FINDINGS Left Ventricle Normal left ventricular size, systolic function and wall thickness, with no regional wall motion abnormalities. Left ventricular ejection fraction is estimated at 60 %. Grade I/IV diastolic dysfunction (abnormal relaxation filling pattern), normal to mildly elevated filling pressures. Right Ventricle Normal right ventricular size and systolic function. Right Atrium Normal right atrial size. Left Atrium Normal left atrial size. IA Septum Normal appearance of the interatrial septum. Mitral Valve Moderately thickened mitral valve. Mild mitral annular calcification. No mitral valve stenosis. Mild mitral valve regurgitation. Aortic Valve Severe aortic valve calcification. Severe aortic valve stenosis, mean gradient 35.9 mmHg, JETT 0.65 cm squared. Trace aortic valve regurgitation. Tricuspid Valve Normal tricuspid valve structure. No tricuspid valve stenosis or regurgitation. Normal pulmonary pressure. Pulmonic Valve Normal pulmonic valve structure. No pulmonic valve stenosis or regurgitation. Pericardium No pericardial effusion. Aorta Normal diameter of the aortic root and ascending thoracic aorta. IVC Normal IVC diameter. CONCLUSIONS Normal left ventricular size, systolic function and wall thickness, with no regional wall motion abnormalities. Left ventricular ejection fraction is estimated at 60 %. Grade I/IV diastolic dysfunction (abnormal relaxation filling pattern), normal to mildly elevated filling pressures. Moderately thickened mitral valve. Mild mitral annular calcification. No mitral valve stenosis. Mild mitral valve regurgitation. Severe aortic valve calcification. Severe aortic valve stenosis, mean gradient 35.9 mmHg, JETT 0.65 cm squared. Trace aortic valve regurgitation. There is no pericardial effusion. Right atrial pressure is around 5 mm of mercury. Tammy Hardy MD (Electronically Signed) Final Date: 07 March 2025 08:39 S
== END 2025-03-01 11:36 | disposition home or self-care (01) ==
LOC: RAD 11:36
PROVIDERS: PCP Family Medicine; Visit Provider Internal Medicine Cardiovascular Disease
DX: I35.0 Nonrheumatic aortic (valve) stenosis (principal); R93.1 Abnormal findings on diagnostic imaging of heart and coronary circulation; I34.81 Nonrheumatic mitral (valve) annulus calcification; I34.0 Nonrheumatic mitral (valve) insufficiency; I35.8 Other nonrheumatic aortic valve disorders
CPT/HCPCS: 93306